=== PATIENT | male | born 1970 | race African-American/Black ===

== ENCOUNTER 2016-06-28 01:50 | Emergency (ER) | payer BC, OTHER ==
[2015-03-03 15:00] VITALS: BP 140/95
[~2016-06-28 01:50] MED LIST: ATOR10TA60 PO; Aspirin PO; FOLI1TAB16 PO; LIRA0.6P2 SQ; LISI10TA2 PO; METF10002 PO; OMEP40CA5 PO
== END 2016-06-28 02:20 | disposition left against medical advice (07) ==
LOC: ER 01:50
DX: R10.13 Epigastric pain (principal); Z53.21 Procedure and treatment not carried out due to patient leaving prior to being seen by health care provider

== ENCOUNTER 2016-08-12 19:33 | Inpatient (IN) | payer BC, OTHER ==
[~2016-08-12] VITALS: Ht 190.5 cm; Wt 158.0 kg
[2016-08-12 20:33] LABS: BASO % 1 % (0-3); EOS % 0 % (0-3); HEMATOCRIT 45.4 % (39.0-53.0); HEMOGLOBIN 14.7 g/dL (13.0-17.5); LYMPH % 23 % (24-48); MEAN CORPUSCULAR HEMOGLOBIN 27 pg (25-35); MEAN CORPUSCULAR HGB CONC 32 g/dL (31-37); MEAN CORPUSCULAR VOLUME 83 fL (79-100); MONO % 14 % (0-9); NEUT % 62 % (31-73); PLATELET COUNT 145 x10^3/uL (140-400); RED BLOOD COUNT 5.45 x10^6/uL (4.30-5.70); RED CELL DISTRIBUTION WIDTH 14.1 % (11.5-14.5); WHITE BLOOD COUNT 4.5 x10^3/uL (4.0-11.0)
[2016-08-12 20:44] LABS: CALCIUM 8.8 mg/dL (8.5-10.1); CREATININE 1.1 mg/dL (0.7-1.3); GFR 86.8; POTASSIUM 3.7 mmol/L (3.5-5.1)
[2016-08-12 20:49] LABS: ALBUMIN 3.5 g/dL (3.4-5.0); DIRECT BILIRUBIN 0.1 mg/dL (0.0-0.2); TOTAL BILIRUBIN 0.5 mg/dL (0.2-1.0); TOTAL PROTEIN 7.9 g/dL (6.4-8.2)
--- NOTE | 2016-08-12 21:26 | PHYS DOC ---
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 Patient has history of diabetes and hypertension. 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 He does state he has intermittent left upper quadrant pain but that his pain is more severe over the last day. Patient is febrile here at 102 Fahrenheit and complaining of some mild headache symptoms as well. He denies any cough. He denies any shortness of breath or chest pain. He denies any fever or chills. Review of Systems Review of Systems Constitutional: Has fever, has chills [] Eyes: Denies change in visual acuity, redness, or eye pain [] HENT: Denies nasal congestion or sore throat [] Respiratory: Denies cough or shortness of breath [] Cardiovascular: No additional information not addressed in HPI [] GI: Has abdominal pain, denies nausea, denies vomiting, bloody stools or diarrhea [] : Denies dysuria or hematuria [] Musculoskeletal: Denies back pain or joint pain [] Integument: Denies rash or skin lesions [] Neurologic: Denies headache, focal weakness or sensory changes [] Endocrine: Denies polyuria or polydipsia [] Current Medications Current Medications Current Medications Medications (Trade) Dose Ordered Sig/[facility] Start Time Stop Time Status Last Admin Dose Admin Acetaminophen (Tylenol) 650 mg 1X ONCE 08/12/16 22:30 08/12/16 22:31 DC 08/12/16 22:32 650 MG Enoxaparin Sodium (Lovenox 150mg Syringe) 150 mg 1X ONCE 08/12/16 23:00 08/12/16 23:01 DC 08/12/16 23:11 150 MG Hydralazine HCl (Apresoline) 10 mg 1X ONCE 08/12/16 22:00 08/12/16 22:01 DC 08/12/16 22:05 10 MG Info (Do NOT chart on this entry -- for MONITORING) 1 each PRN DAILY PRN 08/12/16 21:45 08/14/16 21:44 Iohexol (Omnipaque 300 Mg/ml) 75 ml 1X ONCE 08/12/16 21:45 08/12/16 21:46 DC 08/12/16 21:43 75 ML Ketorolac Tromethamine (Toradol) 30 mg 1X ONCE 08/12/16 21:30 08/12/16 21:31 DC 08/12/16 21:57 30 MG Ondansetron HCl (Zofran) 4 mg 1X ONCE 08/12/16 21:30 08/12/16 21:31 DC 08/12/16 21:56 4 MG Ondansetron HCl 4 mg 4 mg PRN Q8HRS PRN 08/12/16 22:45 08/13/16 22:44 Sodium Chloride (Iv Sodium Chloride 0.9% 1000ml Bag) 1,000 ml @ 125 mls/hr Q8H 08/12/16 22:45 08/13/16 22:44 08/12/16 23:23 125 MLS/HR Allergies Allergies Allergies Coded Allergies Type Severity Reaction Last Updated Verified No Known Drug Allergies 08/05/13 No Physical Exam Physical Exam Constitutional: Well developed, well nourished, no acute distress, non-toxic appearance. [] HENT: Normocephalic, atraumatic, bilateral external ears normal, oropharynx moist, no oral exudates, nose normal. [] Eyes: PERRLA, EOMI, conjunctiva normal, no discharge. [] Neck: Normal range of motion, no tenderness, supple, no stridor. [] Cardiovascular:Heart rate regular rhythm, no murmur [] Lungs & Thorax: Bilateral breath sounds clear to auscultation [] Abdomen: Bowel sounds normal, soft, LUQ tenderness, no masses, no pulsatile masses. [] Skin: Warm, dry, no erythema, no rash. [] Back: No tenderness, no CVA tenderness. [] Extremities: No tenderness, no cyanosis, no clubbing, ROM intact, no edema. [] Neurologic: Alert and oriented X 3, normal motor function, normal sensory function, no focal deficits noted. [] Psychologic: Affect normal, judgement normal, mood normal. [] Current Patient Data Vital Signs Vital Signs Date Time Temp Pulse Resp B/P Pulse Ox O2 Delivery O2 Flow Rate FiO2 08/12/16 22:05 88 160/96 08/12/16 19:48 102.4 20 96 Room Air 102.4 Lab Values Laboratory Tests Test 08/12/16 20:21 08/12/16 22:00 White Blood Count 4.5x10^3/uL (4.0-11.0) Red Blood Count 5.45x10^6/uL (4.30-5.70) Hemoglobin 14.7g/dL (13.0-17.5) Hematocrit 45.4% (39.0-53.0) Mean Corpuscular Volume 83fL (79-100) Mean Corpuscular Hemoglobin 27pg (25-35) Mean Corpuscular Hemoglobin Concent 32g/dL (31-37) Red Cell Distribution Width 14.1% (11.5-14.5) Platelet Count 145x10^3/uL (140-400) Neutrophils (%) (Auto) 62% (31-73) Lymphocytes (%) (Auto) 23% (24-48) L Monocytes (%) (Auto) 14% (0-9) H Eosinophils (%) (Auto) 0% (0-3) Basophils (%) (Auto) 1% (0-3) Neutrophils # (Auto) 2.8x10^3uL (1.8-7.7) Lymphocytes # (Auto) 1.0x10^3/uL (1.0-4.8) Monocytes # (Auto) 0.6x10^3/uL (0.0-1.1) Eosinophils # (Auto) 0.0x10^3/uL (0.0-0.7) Basophils # (Auto) 0.0x10^3/uL (0.0-0.2) Sodium Level 139mmol/L (136-145) Potassium Level 3.7mmol/L (3.5-5.1) Chloride Level 102mmol/L (98-107) Carbon Dioxide Level 26mmol/L (21-32) Anion Gap 11 (6-14) Blood Urea Nitrogen 10mg/dL (8-26) Creatinine 1.1mg/dL (0.7-1.3) Estimated GFR (Cockcroft-Gault) 86.8 Glucose Level 211mg/dL (70-99) H Calcium Level 8.8mg/dL (8.5-10.1) Total Bilirubin 0.5mg/dL (0.2-1.0) Direct Bilirubin 0.1mg/dL (0.0-0.2) Aspartate Amino Transferase (AST) 31U/L (15-37) Alanine Aminotransferase (ALT) 45U/L (16-63) Alkaline Phosphatase 66U/L (46-116) Total Protein 7.9g/dL (6.4-8.2) Albumin 3.5g/dL (3.4-5.0) Lipase 109U/L (73-393) Influenza Type A Antigen Negative (NEGATIVE) Influenza Type B Antigen Negative (NEGATIVE) Laboratory Tests 08/12/16 20:21 Laboratory Tests 08/12/16 20:21 EKG EKG [] Radiology/Procedures Radiology/Procedures FINDINGS Evaluation of enteric structures may be limited by lack of oral contrast. Fatty liver disease is seen. Spleen is mildly enlarged measuring 14.5 centimeters in axial dimension. Gallbladder is unremarkable as are the adrenal glands. Bilateral kidneys enhance symmetrically. No bowel obstruction or inflammation is seen. Appendix is without inflammation. Small fat containing umbilical hernia is present. Urinary bladder is unremarkable. Numerous varices and collateral veins are seen in the upper abdomen adjacent to the stomach and spleen. Some of the dilated veins extend to the inferior right abdomen. Exact cause is not identified, but the confluence of the splenic and mesenteric veins into the portal vein is indistinct. Consequently, there could be stenosis or occlusion in this location. The pancreas is grossly without evidence of inflammation or mass. Splenic vein is not well seen, and it is uncertain if it is stenotic or occluded. Degenerative changes are present in spine. IMPRESSION 1. Abnormal appearance to the portal venous and mesenteric venous system. Numerous varices and dilated collateral vessels are seen in the abdomen. Portal venous system is also indistinct. Consequently, there may be occlusion or stenosis, either from external or internal causes, at the expected location of the confluence of the splenic vein and mesenteric veins into the portal vein. Additionally, the splenic vein is not well seen, and it is uncertain if it is stenotic or occluded. This would be a chronic process, and it is uncertain if this is cause of patient's symptoms. 2. Splenomegaly. 3. Small fat containing umbilical hernia. Course & Med Decision Making Course & Med Decision Making Pertinent Labs and Imaging studies reviewed. (See chart for details) This 46-year-old male who is having left upper quadrant pain with fever as a CT of his abdomen and pelvis that does demonstrate some concerning findings and his portal one mesenteric circulation with a difficult to visualize splenic vein. I'm concerned that he may have another thrombus in the splenic vein that may be exacerbating his abdominal pain. I discussed these findings with the hospitalist, Dr. Grimes, who agreed to give the patient a Lovenox injection and to admit for further evaluation for his CT findings. His laboratory workup was unremarkable. Patient will likely receive MR imaging of his abdomen to further visualize the splenic vein and rule out any blood clot. Dragon Disclaimer Dragon Disclaimer This electronic medical record was generated, in whole or in part, using a voice recognition dictation system. Departure Departure Impression: Primary Impression: LUQ abdominal pain Additional Impression: Fever Disposition: 09 ADMITTED INPATIENT Admitting Physician: Shree Grimes Condition: STABLE Referrals: FABIO LOCKWOOD MD (PCP) Problem Qualifiers KARIME PONCE DO Aug 12, 2016 21:26
[2016-08-12] MEDS ORDERED: IV NORMAL SALINE 1000ML BAG 1,000 ML IV ONE (21:30)
[2016-08-12] MEDS ORDERED: ONDANSETRON PF 4 MG/2 ML VIAL. IV ONE (21:30)
[2016-08-12] MEDS ORDERED: KETOROLAC TROMETHAMINE 30 MG/ML INJ. IV ONE (21:30)
[2016-08-12] MEDS ORDERED: IOHEXOL 300 MG/ML 75 ML VIAL IV ONE (21:45)
[2016-08-12] MEDS ORDERED: CONTRAST GIVEN MC PRN (21:45)
[2016-08-12] MEDS ORDERED: hydrALAZINE 20 MG/ML VIAL. IVP ONE (22:00)
--- NOTE | 2016-08-12 22:17 | RAD ---
PROCEDURE CT abdomen pelvis with intravenous contrast. HISTORY Fever and left upper quadrant pain since previous day. TECHNIQUE After administration of intravenous contrast, 75 milliliters Omnipaque 300, CT of the abdomen and pelvis was performed. Exposure: One or more of the following individualized dose reduction techniques were utilized for this examination: 1. Automated exposure control. 2. Adjustment of the mA and/or kV according to patient size. 3. Use of iterative reconstruction technique. COMPARISON None. FINDINGS Evaluation of enteric structures may be limited by lack of oral contrast. Fatty liver disease is seen. Spleen is mildly enlarged measuring 14.5 centimeters in axial dimension. Gallbladder is unremarkable as are the adrenal glands. Bilateral kidneys enhance symmetrically. No bowel obstruction or inflammation is seen. Appendix is without inflammation. Small fat containing umbilical hernia is present. Urinary bladder is unremarkable. Numerous varices and collateral veins are seen in the upper abdomen adjacent to the stomach and spleen. Some of the dilated veins extend to the inferior right abdomen. Exact cause is not identified, but the confluence of the splenic and mesenteric veins into the portal vein is indistinct. Consequently, there could be stenosis or occlusion in this location. The pancreas is grossly without evidence of inflammation or mass. Splenic vein is not well seen, and it is uncertain if it is stenotic or occluded. Degenerative changes are present in spine. IMPRESSION 1. Abnormal appearance to the portal venous and mesenteric venous system. Numerous varices and dilated collateral vessels are seen in the abdomen. Portal venous system is also indistinct. Consequently, there may be occlusion or stenosis, either from external or internal causes, at the expected location of the confluence of the splenic vein and mesenteric veins into the portal vein. Additionally, the splenic vein is not well seen, and it is uncertain if it is stenotic or occluded. This would be a chronic process, and it is uncertain if this is cause of patient's symptoms. 2. Splenomegaly. 3. Small fat containing umbilical hernia. Electronically signed by: Matthew Gallo MD (Aug 12, 2016 22:15:37)
[2016-08-12] MEDS ORDERED: ACETAMINOPHEN 325 MG TABLET. PO ONE (22:30)
[2016-08-12 22:38] LABS: OBC FLU VALID
[2016-08-12] MEDS ORDERED: ONDANSETRON PF 4 MG/2 ML VIAL. IV PRN (22:45)
[2016-08-12] MEDS ORDERED: ENOXAPARIN ** NOTE DOSE ** SYRINGE SQ ONE (23:00)
[2016-08-12] MEDS: IV NORMAL SALINE 1000ML BAG 1,000 ML IV SCH (23:23)
--- NOTE | 2016-08-13 01:01 | ACF ---
Admission Forms Criteria ABDOMINAL PAIN Clinical Indications for Admission to Inpatient Care (Place 'X' for any and all applicable criteria): Admission is indicated for ANY ONE of the following(1)(2)(3)(4)(5): [X ]I. Inpatient admission required rather than observation care (Also use Abdominal Pain: Observation Care, as appropriate) because of ANY ONE of the following: [ ]a) Severe pain requiring acute inpatient management [X ]b) Identification of etiology/finding that requires inpatient care (eg, aortic dissection, free air) [ ]c) Absent bowel sounds with complete ileus(6) [ ]d) Suspected toxic megacolon [ ]e) Severe electrolyte abnormalities requiring inpatient care [ ]f) High fever or infection requiring inpatient admission as indicated by ANY ONE of following(7)(8): [ ] i) Appropriate outpatient or observational care antimicrobial treatment unavailable, not effective, or not feasible [ ] ii) Documented bacteremia [ ] iii) Temperature > 104.9 degrees F (oral) [ ] iv) T >103.1 F (oral) or < 96.8 F(rectal) that does not respond to all emergency treatment measures [ ]g) Signs of intestinal obstruction [B] [ ]h) Hemodynamic instability [ ]i) IV fluid to replace significant ongoing losses (greater than 3 L/m2 per day) (12)(13) [ ]j) Percutaneous or open drainage (eg, abscess, biliary tract ) procedures [ ]k) Parenteral nutrition regimen that must be implemented on inpatient basis [ ]l) Other condition,treatment or monitoring requiring inpatient admission. [ ]II. Peritoneal signs present [ ]III. Surgery needed that cannot be performed on an ambulatory basis. [ ]IV. Evaluation requires patient to not eat or drink for extended period ( eg, more than 24 hours). [ ]V. Contraindications and/or Inappropriate clinical situations for Observational Care in patients with abdominal pain, when ANY ONE of the following is required: [ ]a) Thorough evaluation is required to prevent catastrophic events due to delays in diagnosing (e.g.Mesenteric ischemia) 1,3 [ ]b) Patient with severe pathology or with chronic symptoms unlikely to improve in the ED stay (3) [ ]. General contraindications and/or Inappropriate clinical situations for Observational Care in patients with abdominal pain, when ANY ONE of the following is required: [ ]a) Prediction of prolongation of LOS based on ANY ONE of the following may be considered as a contraindication for observational care 2, 3, 4, 5, 6, 7, 8, 9, 10, 11 [ ]i) Age > 65 yrs. [ ]ii) Patient arriving by ambulance [ ]iii) Patient with high acuity [ ]iv) Patient requiring vital sign monitoring [ ]v) Patient on IV medication [ ]b) Systolic blood pressures 180mmHg 3,12 [ ]c) Patient with altered mental status including delirium and other alteration of consciousness, (3) [ ]d) Patient whose discharge disposition will be to a [facility] home or rehabilitation home should not be managed in Emergency Department Observation Unit. CMS rule requires 3 days hospital stay before such placement.3,13 [ ]e) Patient with failure to thrive due to broad array of etiologies 3,16,17 [ ]f) Inability to ambulate 3,14 Extended stay beyond goal length of stay may be needed for(2)(3): [ ]a) Persistent abdominal pain with suspected intra-abdominal process [ ]b) Diagnosed condition requiring continued stay (e.g., pancreatitis, complicated diverticulitis) [ ]c) Surgery (e.g., colectomy) The original [facility] content created by [employer] has been revised. The portions of the content which have been revised are identified through the use of italic text or in bold, and [facility] has neither reviewed nor approved the modified material.All other unmodified content is copyright [employer]. Please see references footnoted in the original [facility] edition 2016 Admission Criteria Met?: Yes DEVORAH ROBERTSON Aug 13, 2016 01:01
[2016-08-13 02:10] VITALS: BP 131/73
[2016-08-13] MEDS: FENTANYL PF 100 MCG/2 ML VIAL. IV PRN ×2 (02:12→05:24)
[2016-08-13 07:00] VITALS: BP_SYST 162; BP_DIAS 102; BP_DIAS 97
[2016-08-13 07:03] LABS: BASO % 1 % (0-3); EOS % 0 % (0-3); HEMATOCRIT 45.9 % (39.0-53.0); HEMOGLOBIN 14.4 g/dL (13.0-17.5); LYMPH # 1.2 x10^3/uL (1.0-4.8); LYMPH % 31 % (24-48); MEAN CORPUSCULAR HEMOGLOBIN 27 pg (25-35); MEAN CORPUSCULAR HGB CONC 31 g/dL (31-37); MEAN CORPUSCULAR VOLUME 86 fL (79-100); MONO % 14 % (0-9); NEUT % 55 % (31-73); PLATELET COUNT 136 x10^3/uL (140-400); RED BLOOD COUNT 5.35 x10^6/uL (4.30-5.70); RED CELL DISTRIBUTION WIDTH 14.6 % (11.5-14.5); WHITE BLOOD COUNT 3.8 x10^3/uL (4.0-11.0)
[2016-08-13 07:12] LABS: CALCIUM 8.7 mg/dL (8.5-10.1); CREATININE 1.1 mg/dL (0.7-1.3); GFR 86.8
[2016-08-13] MEDS: IV NORMAL SALINE 1000ML BAG 1,000 ML IV SCH ×2 (08:20→16:10)
--- NOTE | 2016-08-13 08:24 | PDOC ---
Provider Note Provider Note [id number] CRISTOBAL MONZON MD Aug 13, 2016 08:23
[2016-08-13] MEDS ORDERED: ACETAMINOPHEN 325 MG TABLET. PO PRN ×2 (08:30→17:15)
[2016-08-13] MEDS: ASA/APAP/CAFFEINE 250/250/65MG TABLET. PO PRN (08:34)
[2016-08-13] MEDS: LISINOPRIL 10 MG TABLET PO SCH (08:35)
[2016-08-13] MEDS: PANTOPRAZOLE 40 MG TABLET. PO SCH (08:35)
--- NOTE | 2016-08-13 09:21 | RAD ---
Indication fever and left-sided chest pain. PA and lateral views of the chest were obtained. Comparison is made to an examination 11/19/2011. Inspiratory effort is suboptimal. Heart size is unchanged relative to the previous exam. Gross congestive heart failure is not seen. A focal infiltrate in either lung is not seen. Significant pleural fluid is not apparent. There is no pneumothorax. IMPRESSION: No acute finding apparent in the chest.
[2016-08-13 11:00] VITALS: BP 152/96
[2016-08-13 15:00] VITALS: BP 161/99
[2016-08-13 16:18] LABS: HEP A IGM ABDY Negative (Negative)
[2016-08-13] MEDS: ACETAMINOPHEN 325 MG TABLET. PO PRN ×2 (17:20→21:01)
[2016-08-13 17:44] LABS: BILIRUBIN,URINE NEGATIVE (NEG); GLUCOSE,URINE 100 mg/dL (NEG); NITRITE,URINE NEGATIVE (NEG); PH,URINE 6.5; PROTEIN,URINE NEGATIVE (NEG-TRACE)
[2016-08-13 18:19] LABS: BACTERIA,URINE 0 /HPF (0-FEW); RBC,URINE 0 /HPF (0-2); SQUAMOUS EPITHELIAL CELL,UR FEW /LPF; WBC,URINE 0 /HPF (0-4)
--- NOTE | 2016-08-13 18:42 | PDOC2 ---
NEUROLOGY CONSULT Date of Admission Date of Admission DATE: 08/13/16 TIME: 18:29 Reason for Consult Reason for Consult: IMPRESSION: Abdominal pain. Headache. fever. Nausea Vomiting. Portal vein system abnormality on ab CT. Hx of spleen thrombosis. DM HTN Obesity HCV infection? RECOMMENDATIONS/PLAN: Brain MRI/MRA/MRV w/wo contrast. Lab: see orders. Keep good hydration. Please consult ID. Please consult GI. Treat medical diseases. HISTORY OF THE PRESENT ILLNESS: 46-y-old AA male patient with above medical disease had Hx of spleen thrombosis about 2 years ago. He developed symptoms of nausea, vomiting, abdominal pain, headaches, and fever as high as 103 per his for about 2 days before coming to the ER of [facility]. No mental status changes. No focalized motor or sensory deficits. PAST MEDICAL HISTORY: Please see above. PAST SURGERY HISTORY: Right rotate cuff surgery. Right knee surgery ALLERGY: Reviewed. MEDICATIONS: Refer to [facility] FAMILY HISTORY: Non contributory. SOCIAL HISTORY: Lives at home aith his . Denies smoking and illicit drug use. He drinks alcohol occasionally. REVIEW OF SYSTEMS: Constitutional: No malnutrition, weight loss, cachexia. Head: No traumatic brain or head injury. Skin: No edema, or rash. Ear: No infection. Eyes: No vision loss or color blindness. Nose: No bleeding or purulent discharges. Hearing: No hearing decrease. Neck: No injury. Cardiac: HTN. Pulmonary: No COPD. GI: Spleen thrombosis. Urinary/genital: No dysuria, hematuria, incontinence, urinary retention. Endocrinologic: Diabetes Mellitus, obesity. Skeletomuscular: No muscular atrophy, deformity. Neurological: see HP. Psychiatric: Denies drug use/abuse. Otherwise, not [id number] review of systems. PHYSICAL EXAMINATION: General appearance is in subacute distress. HEENT: Normocephalic and nontraumatic. Eyes, nose, ears, and throat are unremarkable. Neck is supple. No lymphadenopathy. No bruits are heard over the carotid artery. No crepitus. Cardiovascular: S1, S2, regular rate and rhythm. Pulmonary: Clear to auscultation bilaterally. Abdomen: Bowel sounds are positive. Extremities: No rash, lesions, or edema. No restriction of range of motion NEUROLOGICAL EXAMINATION: Alert Oriented to time, place and person. PERRL. EOMI. CN: no focal findings. Muscle tone: within normal. Muscle strength: 5 DTR: 1+ due to obesity. Plantar reflex: Flexor response bilaterally Gait: At baseline normal. Sensory exam: no abnormal findings. No acute cerebellar signs elicited. F-T-N test fine. Current Medications Current Medications Current Medications Ketorolac Tromethamine 30 mg 30 mg 1X ONCE IV Last administered on 08/12/16 21:57; Start 08/12/16 at 21:30; Stop 08/12/16 at 21:31; Status DC Sodium Chloride (Iv Sodium Chloride 0.9% 1000ml Bag) 1,000 ml @ 1,000 mls/hr 1X ONCE IV Last administered on 08/12/16 21:58; Start 08/12/16 at 21:30; Stop 08/12/16 at 22:29; Status DC Ondansetron HCl (Zofran) 4 mg 1X ONCE IV Last administered on 08/12/16 21:56 ; Start 08/12/16 at 21:30; Stop 08/12/16 at 21:31; Status DC Iohexol (Omnipaque 300 Mg/ml) 75 ml 1X ONCE IV Last administered on 08/12/16 21:43; Start 08/12/16 at 21:45; Stop 08/12/16 at 21:46; Status DC Info (Do NOT chart on this entry -- for MONITORING) 1 each PRN DAILY PRN MC SEE COMMENTS; Start 08/12/16 at 21:45; Stop 08/14/16 at 21:44 Hydralazine HCl (Apresoline) 10 mg 1X ONCE IVP Last administered on 08/12/16 22:05; Start 08/12/16 at 22:00; Stop 08/12/16 at 22:01; Status DC Acetaminophen (Tylenol) 650 mg 1X ONCE PO Last administered on 08/12/16 22:32 ; Start 08/12/16 at 22:30; Stop 08/12/16 at 22:31; Status DC Enoxaparin Sodium (Lovenox 150mg Syringe) 150 mg 1X ONCE SQ Last administered on 08/12/16 23:11; Start 08/12/16 at 23:00; Stop 08/12/16 at 23:01; Status DC Ondansetron HCl 4 mg 4 mg PRN Q8HRS PRN IV NAUSEA/VOMITING; Start 08/12/16 at 22:45; Stop 08/13/16 at 22:44 Sodium Chloride (Iv Sodium Chloride 0.9% 1000ml Bag) 1,000 ml @ 125 mls/hr Q8H IV Last administered on 08/13/16 08:20; Start 08/12/16 at 22:45; Stop at 22:44 Fentanyl Citrate (Fentanyl 2ml Vial) 50 mcg PRN Q2HR PRN IV PAIN Last administered on 08/13/16 05:24; Start 08/13/16 at 01:30; Stop 08/13/16 at 08:20 ; Status DC Lisinopril (Prinivil) 10 mg DAILY PO Last administered on 08/13/16 08:35; Start 08/13/16 at 09:00 Pantoprazole Sodium (Protonix) 40 mg DAILYAC PO Last administered on 08/13/16 08:35; Start 08/13/16 at 08:30 Acetaminophen (Tylenol) 650 mg PRN Q6HRS PRN PO PAIN; Start 08/13/16 at 08:30; Stop 08/13/16 at 17:10; Status DC Acetaminophen/ Aspirin/Caffeine (Excedrin Migraine) 2 tab PRN Q6HRS PRN PO MIGRAINE HEADACHE Last administered on 08/13/16 08:34; Start 08/13/16 at 08:30 Acetaminophen (Tylenol) 650 mg PRN Q6HRS PRN PO PAIN; Start 08/13/16 at 17:15; Stop 08/13/16 at 17:15; Status DC Acetaminophen (Tylenol) 650 mg PRN Q6HRS PRN PO PAIN Last administered on 17:20; Start 08/13/16 at 17:30 Ibuprofen (Motrin) 400 mg PRN Q4HRS PRN PO HEADACHE; Start 08/13/16 at 17:45 Active Scripts Active Atorvastatin Calcium 10 Mg Tablet 1 Tab PO DAILY [Aspirin] 325 MG Tablet 325 Mg PO DAILYWBKFT Reported Folic Acid 1 Mg Tablet 1 Tab PO DAILY Victoza 3-Pako (Liraglutide) 0.6 Mg/0.1 Ml Pen.injctr 1.8 Mg SQ DAILY Omeprazole 40 Mg Capsule.dr 40 Mg PO DAILY Lisinopril 10 Mg Tablet 10 Mg PO DAILY Metformin Hcl 1,000 Mg Tablet 1,000 Mg PO BID Allergies Allergies: Coded Allergies: No Known Drug Allergies (Unverified , 08/05/13) Vitals VITALS Vital Signs Date Time Temp Pulse Resp B/P Pulse Ox O2 Delivery O2 Flow Rate FiO2 08/13/16 15:00 98.0 75 20 161/99 95 Room Air 98.0 Labs Labs Laboratory Tests Test 08/12/16 20:21 08/12/16 22:00 08/13/16 06:15 08/13/16 08:24 White Blood Count 4.5x10^3/uL (4.0-11.0) 3.8x10^3/uL (4.0-11.0) Red Blood Count 5.45x10^6/uL (4.30-5.70) 5.35x10^6/uL (4.30-5.70) Hemoglobin 14.7g/dL (13.0-17.5) 14.4g/dL (13.0-17.5) Hematocrit 45.4% (39.0-53.0) 45.9% (39.0-53.0) Mean Corpuscular Volume 83fL (79-100) 86fL (79-100) Mean Corpuscular Hemoglobin 27pg (25-35) 27pg (25-35) Mean Corpuscular Hemoglobin Concent 32g/dL (31-37) 31g/dL (31-37) Red Cell Distribution Width 14.1% (11.5-14.5) 14.6% (11.5-14.5) Platelet Count 145x10^3/uL (140-400) 136x10^3/uL (140-400) Neutrophils (%) (Auto) 62% (31-73) 55% (31-73) Lymphocytes (%) (Auto) 23% (24-48) 31% (24-48) Monocytes (%) (Auto) 14% (0-9) 14% (0-9) Eosinophils (%) (Auto) 0% (0-3) 0% (0-3) Basophils (%) (Auto) 1% (0-3) 1% (0-3) Neutrophils # (Auto) 2.8x10^3uL (1.8-7.7) 2.1x10^3uL (1.8-7.7) Lymphocytes # (Auto) 1.0x10^3/uL (1.0-4.8) 1.2x10^3/uL (1.0-4.8) Monocytes # (Auto) 0.6x10^3/uL (0.0-1.1) 0.5x10^3/uL (0.0-1.1) Eosinophils # (Auto) 0.0x10^3/uL (0.0-0.7) 0.0x10^3/uL (0.0-0.7) Basophils # (Auto) 0.0x10^3/uL (0.0-0.2) 0.0x10^3/uL (0.0-0.2) Sodium Level 139mmol/L (136-145) 139mmol/L (136-145) Potassium Level 3.7mmol/L (3.5-5.1) 4.0mmol/L (3.5-5.1) Chloride Level 102mmol/L (98-107) 102mmol/L (98-107) Carbon Dioxide Level 26mmol/L (21-32) 27mmol/L (21-32) Anion Gap 11 (6-14) 10 (6-14) Blood Urea Nitrogen 10mg/dL (8-26) 10mg/dL (8-26) Creatinine 1.1mg/dL (0.7-1.3) 1.1mg/dL (0.7-1.3) Estimated GFR (Cockcroft-Gault) 86.8 86.8 Glucose Level 211mg/dL (70-99) 242mg/dL (70-99) Calcium Level 8.8mg/dL (8.5-10.1) 8.7mg/dL (8.5-10.1) Total Bilirubin 0.5mg/dL (0.2-1.0) Direct Bilirubin 0.1mg/dL (0.0-0.2) Aspartate Amino Transf (AST/SGOT) 31U/L (15-37) Alanine Aminotransferase (ALT/SGPT) 45U/L (16-63) Alkaline Phosphatase 66U/L (46-116) Total Protein 7.9g/dL (6.4-8.2) Albumin 3.5g/dL (3.4-5.0) Lipase 109U/L (73-393) Influenza Type A Antigen Negative (NEGATIVE) Influenza Type B Antigen Negative (NEGATIVE) Hepatitis A IgM Antibody Negative (Negative) Hepatitis B Surface Antigen Negative (Negative) Hepatitis B Core IgM Antibody Negative (Negative) Hepatitis C Antibody 1.5s/co ratio (0.0-0.9) Glucose (Fingerstick) 221mg/dL (70-99) Test 08/13/16 09:30 08/13/16 10:52 08/13/16 11:01 08/13/16 16:25 Erythrocyte Sedimentation Rate 14 (0-15) Urine Collection Type Unknown Urine Color Yellow Urine Clarity Clear Urine pH 6.5 Urine Specific [place] 1.025 Urine Protein Negativemg/dL (NEG-TRACE) Urine Glucose (UA) 100mg/dL (NEG) Urine Ketones (Stick) Negativemg/dL (NEG) Urine Blood Negative (NEG) Urine Nitrite Negative (NEG) Urine Bilirubin Negative (NEG) Urine Urobilinogen Dipstick 1.0mg/dL (0.2 mg/dL) Urine Leukocyte Esterase Negative (NEG) Urine RBC 0/HPF (0-2) Urine WBC 0/HPF (0-4) Urine Squamous Epithelial Cells Few/LPF Urine Bacteria 0/HPF (0-FEW) Urine Mucus Mod/LPF Glucose (Fingerstick) 280mg/dL (70-99) 173mg/dL (70-99) Laboratory Tests Test 08/12/16 20:21 08/12/16 22:00 08/13/16 06:15 08/13/16 08:24 White Blood Count 4.5x10^3/uL (4.0-11.0) 3.8x10^3/uL (4.0-11.0) Red Blood Count 5.45x10^6/uL (4.30-5.70) 5.35x10^6/uL (4.30-5.70) Hemoglobin 14.7g/dL (13.0-17.5) 14.4g/dL (13.0-17.5) Hematocrit 45.4% (39.0-53.0) 45.9% (39.0-53.0) Mean Corpuscular Volume 83fL (79-100) 86fL (79-100) Mean Corpuscular Hemoglobin 27pg (25-35) 27pg (25-35) Mean Corpuscular Hemoglobin Concent 32g/dL (31-37) 31g/dL (31-37) Red Cell Distribution Width 14.1% (11.5-14.5) 14.6% (11.5-14.5) Platelet Count 145x10^3/uL (140-400) 136x10^3/uL (140-400) Neutrophils (%) (Auto) 62% (31-73) 55% (31-73) Lymphocytes (%) (Auto) 23% (24-48) 31% (24-48) Monocytes (%) (Auto) 14% (0-9) 14% (0-9) Eosinophils (%) (Auto) 0% (0-3) 0% (0-3) Basophils (%) (Auto) 1% (0-3) 1% (0-3) Neutrophils # (Auto) 2.8x10^3uL (1.8-7.7) 2.1x10^3uL (1.8-7.7) Lymphocytes # (Auto) 1.0x10^3/uL (1.0-4.8) 1.2x10^3/uL (1.0-4.8) Monocytes # (Auto) 0.6x10^3/uL (0.0-1.1) 0.5x10^3/uL (0.0-1.1) Eosinophils # (Auto) 0.0x10^3/uL (0.0-0.7) 0.0x10^3/uL (0.0-0.7) Basophils # (Auto) 0.0x10^3/uL (0.0-0.2) 0.0x10^3/uL (0.0-0.2) Sodium Level 139mmol/L (136-145) 139mmol/L (136-145) Potassium Level 3.7mmol/L (3.5-5.1) 4.0mmol/L (3.5-5.1) Chloride Level 102mmol/L (98-107) 102mmol/L (98-107) Carbon Dioxide Level 26mmol/L (21-32) 27mmol/L (21-32) Anion Gap 11 (6-14) 10 (6-14) Blood Urea Nitrogen 10mg/dL (8-26) 10mg/dL (8-26) Creatinine 1.1mg/dL (0.7-1.3) 1.1mg/dL (0.7-1.3) Estimated GFR (Cockcroft-Gault) 86.8 86.8 Glucose Level 211mg/dL (70-99) 242mg/dL (70-99) Calcium Level 8.8mg/dL (8.5-10.1) 8.7mg/dL (8.5-10.1) Total Bilirubin 0.5mg/dL (0.2-1.0) Direct Bilirubin 0.1mg/dL (0.0-0.2) Aspartate Amino Transf (AST/SGOT) 31U/L (15-37) Alanine Aminotransferase (ALT/SGPT) 45U/L (16-63) Alkaline Phosphatase 66U/L (46-116) Total Protein 7.9g/dL (6.4-8.2) Albumin 3.5g/dL (3.4-5.0) Lipase 109U/L (73-393) Influenza Type A Antigen Negative (NEGATIVE) Influenza Type B Antigen Negative (NEGATIVE) Hepatitis A IgM Antibody Negative (Negative) Hepatitis B Surface Antigen Negative (Negative) Hepatitis B Core IgM Antibody Negative (Negative) Hepatitis C Antibody 1.5s/co ratio (0.0-0.9) Glucose (Fingerstick) 221mg/dL (70-99) Test 08/13/16 09:30 08/13/16 10:52 08/13/16 11:01 08/13/16 16:25 Erythrocyte Sedimentation Rate 14 (0-15) Urine Collection Type Unknown Urine Color Yellow Urine Clarity Clear Urine pH 6.5 Urine Specific [place] 1.025 Urine Protein Negativemg/dL (NEG-TRACE) Urine Glucose (UA) 100mg/dL (NEG) Urine Ketones (Stick) Negativemg/dL (NEG) Urine Blood Negative (NEG) Urine Nitrite Negative (NEG) Urine Bilirubin Negative (NEG) Urine Urobilinogen Dipstick 1.0mg/dL (0.2 mg/dL) Urine Leukocyte Esterase Negative (NEG) Urine RBC 0/HPF (0-2) Urine WBC 0/HPF (0-4) Urine Squamous Epithelial Cells Few/LPF Urine Bacteria 0/HPF (0-FEW) Urine Mucus Mod/LPF Glucose (Fingerstick) 280mg/dL (70-99) 173mg/dL (70-99) DESEAN HANCOCK MD Aug 13, 2016 18:42
[2016-08-13] MEDS: IBUPROFEN 400 MG TABLET. PO PRN (18:51)
[2016-08-13 19:00] VITALS: BP 162/102
[2016-08-13] MEDS: PIPERACILLIN/TAZOBACTAM 3.375 GM in IV NORMAL SALINE 50ML 50 ML IV SCH (20:21)
--- NOTE | 2016-08-13 22:05 | HP ---
ADMIT DATE: 08/13/2016 CHIEF COMPLAINT: Fevers and headache. HISTORY OF PRESENT ILLNESS: A 46-year-old black male patient of Dr. Son who has a history of diabetes and apparently is relatively stable. He came in with 2 days of fever, headache, body aches, malaise, and then some left upper quadrant pain, which has since gone away. He had no other specific complaints of cough, fever, urinary tract symptoms, vomiting, diarrhea, rash, or other symptoms. CT scan showed multiple varicosities in the upper abdomen and some mild splenic enlargement, and he does give a history of some spleen problems 2 to 3 years ago at . He apparently had a liver biopsy and was told "everything is fine" with no definite diagnosis given. He has had a colonoscopy in the past with polyp removal, but nothing recently. PAST HISTORY: MEDICATIONS: He takes Victoza, metformin, and Prinivil. ALLERGIES: He has no known drug allergies. SOCIAL HISTORY: Nonsmoker, nondrinker, . He is employed. FAMILY HISTORY: Unremarkable. REVIEW OF SYSTEMS: No other complaints. OBJECTIVE: ENT: All within normal limits. Pharynx is clear. NECK: Revealed no carotid bruits, nodes, thyroid enlargement, or masses. LUNGS: Clear without tachypnea. CARDIOVASCULAR: Regular rate. No tachycardia, murmur, or rub. ABDOMEN: Soft, benign, nontender particularly in the left upper quadrant. No masses, guarding, or skin rash. EXTREMITIES: Good pedal and radial pulses. No joint or skin lesions or nail bed findings. NEUROLOGIC: Physiologic and nonfocal. No meningeal signs. Alert and oriented. ASSESSMENT: Fever, body aches, myalgias, and transient left upper quadrant pain. The varicosities seen on CT scan are nonspecific raising the question of some sort of ongoing liver disease or portal hypertension, but ____ etiology is not clear. PLAN: Blood cultures, urinalysis, chest x-ray and observation. We will get old records from Dr. Son as well. CRISTOBAL MONZON MD DR: RICH/angelia JOB#: [id number] / [id number]
[2016-08-13 23:00] VITALS: BP 136/92
[2016-08-14] MEDS: IBUPROFEN 400 MG TABLET. PO PRN (01:12)
[2016-08-14 03:20] VITALS: BP 136/76
[2016-08-14] MEDS ORDERED: ACETAMINOPHEN 325 MG TABLET. PO ONE (04:27)
[2016-08-14] MEDS: PIPERACILLIN/TAZOBACTAM 3.375 GM in IV NORMAL SALINE 50ML 50 ML IV SCH ×6 (05:41→22:18)
[2016-08-14 05:48] LABS: CHOLESTEROL/HDL RATIO 5.7
[2016-08-14] MEDS: PANTOPRAZOLE 40 MG TABLET. PO SCH (06:24)
[2016-08-14] MEDS: ACETAMINOPHEN 325 MG TABLET. PO PRN ×3 (06:24→17:23)
[2016-08-14 07:00] VITALS: BP 138/92
--- NOTE | 2016-08-14 08:19 | PDOC ---
Provider Note Provider Note feels better, less ISABEL , no new sxs- discussed + hep c test , which he says was not found before- temp down, no meningeal signs now , no new signs- discussed high a1c and likely need for insulin, he declines at present and was present for discussion- bc neg as is esr- mri etc pending per dr hanna but i feel no need for LP at present CRISTOBAL MONZON MD Aug 14, 2016 08:19
--- NOTE | 2016-08-14 08:34 | PDOC ---
Infectious Disease Note Vital Sign Vital Signs Vital Signs Date Time Temp Pulse Resp B/P Pulse Ox O2 Delivery O2 Flow Rate FiO2 08/14/16 03:20 98.0 64 20 136/76 94 Room Air 98.0 Labs Lab Laboratory Tests Test 08/13/16 09:30 08/13/16 10:52 08/13/16 11:01 08/13/16 16:25 Erythrocyte Sedimentation Rate 14 (0-15) Urine Collection Type Unknown Urine Color Yellow Urine Clarity Clear Urine pH 6.5 Urine Specific [place] 1.025 Urine Protein Negativemg/dL (NEG-TRACE) Urine Glucose (UA) 100mg/dL (NEG) Urine Ketones (Stick) Negativemg/dL (NEG) Urine Blood Negative (NEG) Urine Nitrite Negative (NEG) Urine Bilirubin Negative (NEG) Urine Urobilinogen Dipstick 1.0mg/dL (0.2 mg/dL) Urine Leukocyte Esterase Negative (NEG) Urine RBC 0/HPF (0-2) Urine WBC 0/HPF (0-4) Urine Squamous Epithelial Cells Few/LPF Urine Bacteria 0/HPF (0-FEW) Urine Mucus Mod/LPF Glucose (Fingerstick) 280mg/dL (70-99) 173mg/dL (70-99) Test 08/14/16 04:20 08/14/16 07:44 Triglycerides Level 136mg/dL (0-150) Cholesterol Level 147mg/dL (0-200) LDL Cholesterol, Calculated 94mg/dL (0-100) VLDL Cholesterol, Calculated 27mg/dL (0-40) HDL Cholesterol 26mg/dL (40-60) Cholesterol/HDL Ratio 5.7 Glucose (Fingerstick) 167mg/dL (70-99) Objective Assessment Fever and chills Adbominal pain N/V Headache Cirrhosis of liver Hep c Plan Plan of Care zosyn empiric check cultures supportive care hep c workup out pt PETRONA RIVERA MD Aug 14, 2016 08:34
[2016-08-14] MEDS ORDERED: GADOBUTROL 10 MMOL/10 ML VIAL IV ONE (09:45)
--- NOTE | 2016-08-14 10:16 | RAD ---
PROCEDURE MRI brain with and without contrast. HISTORY Increasing headaches. Hepatitis C. Thrombus in GI system. TECHNIQUE Sagittal T1, axial T1, axial T2, axial FLAIR, axial T2 gradient, diffusion imaging with ADC map, post-contrast axial, and post-contrast coronal sequences are provided. The patient received 10 milliliters of intravenous Gadavist without complication. COMPARISON March 03, 2015. FINDINGS The ventricles and sulci are within normal limits for age. There is no acute intracranial hemorrhage or extra-axial fluid collection. There is no mass effect or midline shift. There is no restricted diffusion to suggest an acute infarct. Cervicomedullary junction is unremarkable. Pituitary and suprasellar region are unremarkable. Intracranial flow voids are preserved. There is no pathologic enhancement. There are retention cysts in the nasopharynx. There is minimal pansinus mucosal thickening with relative sparing of the sphenoid sinuses. Mastoid air cells are clear. IMPRESSION No acute intracranial findings. Electronically signed by: Raymundo Geiger MD (Aug 14, 2016 10:15:10)
--- NOTE | 2016-08-14 10:18 | RAD ---
PROCEDURE MRA head without contrast. HISTORY Increasing headaches. Hypertension. TECHNIQUE 3D [id number] source images and 3D maximum intensity projection re-formatted images are provided. COMPARISON None. FINDINGS Cavernous carotids are without stenosis or aneurysm. Anterior and middle cerebral arteries are without stenosis or aneurysm. Both vertebral arteries are within normal limits and cosupply the basilar artery. Basilar artery is normal in appearance. No posterior cerebral artery stenosis is identified. No posterior circulation aneurysm is apparent. IMPRESSION Normal intracranial MRA. Electronically signed by: Raymundo Geiger MD (Aug 14, 2016 10:16:54)
--- NOTE | 2016-08-14 10:20 | RAD ---
PROCEDURE MR venogram head without contrast. HISTORY Headaches. TECHNIQUE 2D [id number] source images and 3D maximum intensity projection re-formatted images are provided. COMPARISON None. FINDINGS Superior sagittal sinus is without thrombus. It preferentially drains to the left transverse sinus. Deep cerebral veins appear patent. IMPRESSION Normal noncontrast MRV head. Electronically signed by: Raymundo Geiger MD (Aug 14, 2016 10:18:33)
--- NOTE | 2016-08-14 10:29 | PDOC2 ---
GI CONSULT Reason For Consult: Nausea, fever HPI: HPI: 46 y/o male admitted w/ ISABEL, fever, LUQ pain. Symptoms began Thursday or Thursday w/ o precipitating events. Vomited once yesterday. Neuro and ID following. Previously has seen Dr. Brody Day. GI workup in 2014: CT A/P: fatty liver, abdominal varices. GET: abnormal T1/2 time of 202 min c/w gastroparesis. EGD: H. pylori neg gastritis, non-bleeding isolated gastric varices, normal esophagus and duodenum. Colonoscopy: 15mm adenomatous polyp in the distal transverse colon, normal random colon biopsies. Hep A Ab IgM positive, elevated Hep C Ab, neg Hep C PCR, neg total anti-HAV. Last office visit (2013) was improved on metoclopramide 10mg TID and omeprazole 40mg QD (h/o heartburn) - no longer taking either of these. Saw Dr. Mitchell (hepatology) at [facility] re: varics, chronic SMV occlusion , and elevated homocysteine level. Recommended folic acid, CBC and CMP monitoring, and interval abd imaging. After that, saw Dr. Smith and a paving foreman at . Was treated w/ Pradaxa x ~6 months about 1.5 years ago. Also had liver biopsy which he says was normal. Currently w/o GI complaints. No pain, tolerating diet w/o vomiting. Does still have headache and neck pain. Denies heartburn/reflux, early satiety, diarrhea, hematochezia, melena. Take stool softener for constipation PRN. PMH: PMH: gastroparesis, heartburn, splenic vein thrombosis, fatty liver, abd varices, knee surgery FH: Family History: Cancer, CVA, DM, Hypertension Social History: Smoke: No ALCOHOL: rare Drugs: None ROS: GEN: +fevers HEENT: +head and neck pain CV: Denies chest pain RESP: Denies shortness of air, cough GI: Per HPI : Denies hematuria, dysuria ENDO: Denies weight changes NEURO: Denies confusion, dizziness MSK: Denies weakness, joint pain/swelling SKIN: Denies jaundice, pruritus VItals: Vitals: Vital Signs Date Time Temp Pulse Resp B/P Pulse Ox O2 Delivery O2 Flow Rate FiO2 08/14/16 07:00 97.8 69 20 138/92 94 Room Air 97.8 Labs: Labs: Laboratory Tests Test 08/13/16 10:52 08/13/16 11:01 08/13/16 16:25 08/14/16 04:20 Urine Collection Type Unknown Urine Color Yellow Urine Clarity Clear Urine pH 6.5 Urine Specific [place] 1.025 Urine Protein Negativemg/dL (NEG-TRACE) Urine Glucose (UA) 100mg/dL (NEG) Urine Ketones (Stick) Negativemg/dL (NEG) Urine Blood Negative (NEG) Urine Nitrite Negative (NEG) Urine Bilirubin Negative (NEG) Urine Urobilinogen Dipstick 1.0mg/dL (0.2 mg/dL) Urine Leukocyte Esterase Negative (NEG) Urine RBC 0/HPF (0-2) Urine WBC 0/HPF (0-4) Urine Squamous Epithelial Cells Few/LPF Urine Bacteria 0/HPF (0-FEW) Urine Mucus Mod/LPF Glucose (Fingerstick) 280mg/dL (70-99) 173mg/dL (70-99) Triglycerides Level 136mg/dL (0-150) Cholesterol Level 147mg/dL (0-200) LDL Cholesterol, Calculated 94mg/dL (0-100) VLDL Cholesterol, Calculated 27mg/dL (0-40) HDL Cholesterol 26mg/dL (40-60) Cholesterol/HDL Ratio 5.7 Test 08/14/16 07:44 Glucose (Fingerstick) 167mg/dL (70-99) Allergies: Coded Allergies: No Known Drug Allergies (Unverified , 08/05/13) Medications: Current Medications Medications (Trade) Dose Ordered Sig/Sergio Route PRN Reason Start Time Stop Time Status Last Admin Dose Admin Acetaminophen (Tylenol) 650 mg PRN Q6HRS PRN PO PAIN 08/13/16 17:30 08/14/16 05:37 DC 08/13/16 21:01 Ibuprofen 400 mg 400 mg PRN Q4HRS PRN PO HEADACHE 08/13/16 17:45 08/14/16 01:12 Piperacillin Sod/ Tazobactam Sod/ Sodium Chloride (Zosyn/Iv Sodium Chloride 0.9% 50ml) 50 ml @ 100 mls/hr Q6HRS IV 08/13/16 19:15 08/14/16 05:41 Acetaminophen (Tylenol) 650 mg PRN Q6HRS PRN PO MILD PAIN 08/14/16 05:37 08/14/16 06:24 Gadobutrol (Gadavist) 10 mmol 1X ONCE IV 08/14/16 09:45 08/14/16 09:48 DC 08/14/16 09:54 Imaging: Imaging: CT A/P IMPRESSION 1. Abnormal appearance to the portal venous and mesenteric venous system. Numerous varices and dilated collateral vessels are seen in the abdomen. Portal venous system is also indistinct. Consequently, there may be occlusion or stenosis, either from external or internal causes, at the expected location of the confluence of the splenic vein and mesenteric veins into the portal vein. Additionally, the splenic vein is not well seen, and it is uncertain if it is stenotic or occluded. This would be a chronic process, and it is uncertain if this is cause of patient's symptoms. 2. Splenomegaly. 3. Small fat containing umbilical hernia. CXR IMPRESSION: No acute finding apparent in the chest. Brain MRIs PENDING PE: GEN: NAD, up to chair HEENT: Atraumatic, PERRL LUNGS: CTAB HEART: RRR ABD: NABS, S/ND/NT EXTREMITY: No edema SKIN: No rashes, no jaundice NEURO/PSYCH: A & O 3 MSK: left rib tenderness A/P: A/P: Fever, ISABEL LUQ pain, vomiting - resolved Abdominal/gastric varices, SMV occlusion -previously on Pradaxa H/o abnormal hepatitis serologies -previously cleared by hepatology -reports normal liver biopsy at [facility] H/o heartburn, h/o gastroparesis -previously took PPI and metoclopramide - asymptomatic off both CRC screen, h/o large adenomatous polyp -due for screening colonoscopy this year -- GI symptoms resolved. Will review chronic issues w/ Dr. Gomez. SALOME REESE Aug 14, 2016 10:29
[2016-08-14 11:00] VITALS: BP 173/105
[2016-08-14] MEDS: LISINOPRIL 10 MG TABLET PO SCH (11:56)
--- NOTE | 2016-08-14 13:58 | PDOC ---
PROGRESS NOTES Assessment Assessment Abdominal pain. Headache. fever. Portal vein system abnormality on ab CT. Hx of spleen thrombosis. DM HTN Obesity HCV infection? No evidence of acute CVA, brain tumor, cerebral venous sinus thrombosis, meningitis or encephalitis at the present time. RECOMMENDATIONS/PLAN: Keep good hydration. Treat medical and GI diseases. ID consulted. GI consulted. HISTORY OF THE PRESENT ILLNESS: 46-y-old AA male patient with above medical disease had Hx of spleen thrombosis about 2 years ago. He developed symptoms of nausea, vomiting, abdominal pain, headaches, and fever as high as 103 per his for about 2 days before coming to the ER of [facility]. No mental status changes. No focalized motor or sensory deficits. He stated that his headaches decreased from 10/10 to 4-5/10 on 08/04. No nausea and vomiting on 08/14. PAST MEDICAL HISTORY: Please see above. PAST SURGERY HISTORY: Right rotate cuff surgery. Right knee surgery ALLERGY: Reviewed. MEDICATIONS: Refer to [facility] FAMILY HISTORY: Non contributory. SOCIAL HISTORY: Lives with his at home. Denies smoking and illicit drug use. He drinks alcohol occasionally. REVIEW OF SYSTEMS: Constitutional: No malnutrition, weight loss, cachexia. Head: No traumatic brain or head injury. Skin: No edema, or rash. Ear: No infection. Eyes: No vision loss or color blindness. Nose: No bleeding or purulent discharges. Hearing: No hearing decrease. Neck: No injury. Cardiac: HTN. Pulmonary: No COPD. GI: Spleen thrombosis. Urinary/genital: No dysuria, hematuria, incontinence, urinary retention. Endocrinologic: Diabetes Mellitus, obesity. Skeletomuscular: No muscular atrophy, deformity. Neurological: see HP. Psychiatric: Denies drug use/abuse. Otherwise, not [id number] review of systems. PHYSICAL EXAMINATION: General appearance is in subacute distress. HEENT: Normocephalic and nontraumatic. Eyes, nose, ears, and throat are unremarkable. Neck is supple. No lymphadenopathy. No bruits are heard over the carotid artery. No crepitus. Cardiovascular: S1, S2, regular rate and rhythm. Pulmonary: Clear to auscultation bilaterally. Abdomen: Bowel sounds are positive. Extremities: No rash, lesions, or edema. No restriction of range of motion NEUROLOGICAL EXAMINATION: Alert Oriented to time, place and person. PERRL. EOMI. CN: no focal findings. Muscle tone: within normal. Muscle strength: 5 DTR: 1+ due to obesity. Plantar reflex: Flexor response bilaterally Gait: At baseline normal. Sensory exam: no abnormal findings. No acute cerebellar signs elicited. F-T-N test fine. Objective Objective Vital Signs Date Time Temp Pulse Resp B/P Pulse Ox O2 Delivery O2 Flow Rate FiO2 08/14/16 11:56 88 175/104 08/14/16 07:00 97.8 20 94 Room Air 97.8 Intake and Output 08/14/16 07:00 Intake Total 1650 ml Output Total 1020 ml Balance 630 ml Intake Oral 1650 ml Output Urine Total 1000 ml Emesis 20 ml # Voids 4 Vitals Signs Vitals VS - Last 72 Hours, by Label Date Time Temp Pulse Resp B/P Pulse Ox O2 Delivery O2 Flow Rate FiO2 08/14/16 11:56 88 175/104 08/14/16 07:00 97.8 69 20 138/92 94 Room Air 97.8 08/14/16 03:20 98.0 64 20 136/76 94 Room Air 98.0 08/13/16 23:00 99.2 76 20 136/92 96 Room Air 99.2 08/13/16 20:00 Room Air 08/13/16 19:00 101.3 88 20 162/102 96 Room Air 101.3 08/13/16 18:45 101.6 101.6 08/13/16 17:15 103.0 103.0 08/13/16 15:00 98.0 75 20 161/99 95 Room Air 98.0 08/13/16 11:00 98.6 78 20 152/96 95 Room Air 98.6 08/13/16 08:35 88 162/102 08/13/16 07:00 162/97 08/13/16 07:00 101.4 80 20 162/102 94 Room Air 101.4 Laboratory Laboratory Laboratory Tests Test 08/13/16 16:25 08/14/16 04:20 08/14/16 07:44 08/14/16 11:49 Glucose (Fingerstick) 173mg/dL (70-99) 167mg/dL (70-99) 243mg/dL (70-99) Triglycerides Level 136mg/dL (0-150) Cholesterol Level 147mg/dL (0-200) LDL Cholesterol, Calculated 94mg/dL (0-100) VLDL Cholesterol, Calculated 27mg/dL (0-40) HDL Cholesterol 26mg/dL (40-60) Cholesterol/HDL Ratio 5.7 Procalcitonin 0.27ng/mL (0.00-0.10) Medication Medications Current Medications Acetaminophen (Tylenol) 325 mg STK-MED ONCE PO ; Start 08/14/16 at 04:27; Stop 08/14/16 at 04:28; Status DC Acetaminophen (Tylenol) 650 mg PRN Q6HRS PRN PO PAIN; Start 08/13/16 at 17:15; Stop 08/13/16 at 17:15; Status DC Acetaminophen (Tylenol) 650 mg PRN Q6HRS PRN PO PAIN Last administered on 21:01; Start 08/13/16 at 17:30; Stop 08/14/16 at 05:37; Status DC Acetaminophen (Tylenol) 650 mg PRN Q6HRS PRN PO MILD PAIN Last administered on 08/14/16 12:17; Start 08/14/16 at 05:37 Gadobutrol (Gadavist) 10 mmol 1X ONCE IV Last administered on 08/14/16 09:54 ; Start 08/14/16 at 09:45; Stop 08/14/16 at 09:48; Status DC Ibuprofen 400 mg 400 mg PRN Q4HRS PRN PO HEADACHE Last administered on 01:12; Start 08/13/16 at 17:45 Piperacillin Sod/ Tazobactam Sod/ Sodium Chloride (Zosyn/Iv Sodium Chloride 0.9 % 50ml) 50 ml @ 100 mls/hr Q6HRS IV Last administered on 08/14/16 12:18; Start 08/13/16 at 19:15 Comment Review of Relevant I have reviewed the following items sina (where applicable) has been applied. DESEAN HANCOCK MD Aug 14, 2016 13:58
[2016-08-14 15:00] VITALS: BP 160/100
[2016-08-14] MEDS ORDERED: ACETAMINOPHEN 325 MG TABLET. PO PRN (17:24)
[2016-08-14 19:00] VITALS: BP 160/111
[2016-08-14 21:12] LABS: BARBITURATES NEG (NEG); BENZODIAZEPINES NEG (NEG); CANNABINOIDS NEG (NEG); COCAINE NEG (NEG); METHADONE NEG (NEG); OPIATES NEG (NEG); PHENCYCLIDINE NEG (NEG)
[2016-08-14 21:19] LABS: ETHANOL, URINE NEG (NEG)
[2016-08-14] MEDS: ASA/APAP/CAFFEINE 250/250/65MG TABLET. PO PRN (22:20)
[2016-08-14 23:00] VITALS: BP 158/98
--- NOTE | 2016-08-15 00:03 | CONS ---
DATE OF CONSULTATION: 08/14/2016 REQUESTING PHYSICIAN: Dr. Shree Grimes. REASON FOR CONSULTATION: Fever and hepatitis C. HISTORY OF PRESENT ILLNESS: This is a 46-year-old -[place] gentleman with history of diabetes and hypertension, who also has had some spleen and liver problem. Evidently, liver biopsy done a year or so ago at , which was unrevealing other than VIDES was found. According to the patient, now the patient comes in with fever and chills that been going on for about 2-3 days with some nausea, vomited once. No diarrhea and abdominal pain. The patient has been admitted with 103 fever, normal white count. CT scan of the abdomen and pelvis showed evidence for cirrhosis of liver with portal hypertension and varices and splenomegaly. The patient is started empirically on Zosyn. The patient in fact also has had headache which the patient says he is feeling better. The headache has improved. Abdominal pain has improved. There is no more nausea or vomiting. PAST MEDICAL HISTORY: He has had a history of problems with enlarged spleen and some problem with liver with liver biopsy done at , at that time also hepatitis was checked and it was negative according to him. Do not have any records to review. The patient also has diabetes, hypertension and obesity. SOCIAL HISTORY: Negative for smoking. Very occasional alcohol use, no drug use. The patient used to drink heavy but he has stopped for last 11 years. ALLERGIES: No known drug allergies. CURRENT MEDICATIONS: Reviewed. The patient is on Zosyn. REVIEW OF SYSTEMS: As per HPI, all other systems reviewed are negative. PHYSICAL EXAMINATION: GENERAL: Alert, oriented gentleman, not in distress. VITAL SIGNS: Stable. T-max is 103. HEENT: Both pupils are round and reacting. No conjunctival lesion, no lesion in the mouth. NECK: Supple, no JVP. No lymphadenopathy. LUNGS: Clear. HEART: S1, S2 regular. No gallop or murmur. ABDOMEN: Soft, nontender. No organomegaly appreciated. EXTREMITIES: No edema or cyanosis. SKIN: Unremarkable. NEUROLOGIC: The patient is neurologically intact. LABORATORY DATA: White count is normal, actually was 4.5 yesterday, today is down to 3.8 and platelets 136,000. Sed rate is 14. BUN and creatinine normal. Hemoglobin A1c is 9.8. Liver functions are normal. Urinalysis unremarkable. Hepatitis screen showed Hep C antibody is 1.5, which is positive. Influenza screen is negative. Chest x-ray is unremarkable. Abdominal CT is showing evidence for splenomegaly, portal hypertension, and varices. IMPRESSION: 1. Fever, most likely viral illness with also headache, which is now improving and abdominal pain, nausea, and vomiting. 2. Cirrhosis of liver with portal hypertension, esophageal varices and splenomegaly. 3. Diabetes with poor control. 4. Hypertension. 5. Hepatitis C. RECOMMENDATIONS: Recommended supportive care, continue Zosyn for just today and hopefully no fever today, then may be able to scale down and with the blood cultures remaining negative, hepatitis C workup outpatient with genotype and viral load, discussion with the patient's done as well as with Dr. Grimes. Thank you very much, Dr. Grimes, for giving me the opportunity to participate in this patient's care. PETRONA RIVERA MD DR: ROBIN/angelia JOB#: [id number] / [id number]
[2016-08-15] MEDS ORDERED: PANTOPRAZOLE 40 MG TABLET.DR. PO ONE (05:13)
[2016-08-15] MEDS: IBUPROFEN 400 MG TABLET. PO PRN ×2 (05:19→08:37)
[2016-08-15] MEDS: PIPERACILLIN/TAZOBACTAM 3.375 GM in IV NORMAL SALINE 50ML 50 ML IV SCH (05:19)
[2016-08-15] MEDS: PANTOPRAZOLE 40 MG TABLET. PO SCH (05:19)
[2016-08-15] MEDS ORDERED: PANTOPRAZOLE 40 MG TABLET.DR. PO SCH (05:33)
[2016-08-15 07:00] VITALS: BP 151/111
--- NOTE | 2016-08-15 07:42 | DISCH ---
DISCHARGE INSTRUCTIONS Condition on Discharge Condition on Discharge: Stable Activity After Discharge Activity Instructions for Disc: No restrictions Diet after Discharge Diet after Discharge: Diabetic No Calorie Level Follow-Up Follow up with: dr avendano 1 w CRISTOBAL MONZON MD Aug 15, 2016 07:42
--- NOTE | 2016-08-15 07:46 | PDOC ---
Provider Note Provider Note [id number] CRISTOBAL MONZON MD Aug 15, 2016 07:46
[2016-08-15] MEDS: LISINOPRIL 10 MG TABLET PO SCH (08:37)
--- NOTE | 2016-08-15 10:00 | DS ---
DATE OF DISCHARGE: 08/15/2016 HOSPITAL SUMMARY: A 46-year-old black male patient of Dr. Son with a history of diabetes and hypertension who came in with fever and initially left upper quadrant pain and headache. The abdominal pain resolved and his headache continued. Laboratory study showed a normal CBC with actually a borderline low white count of 3800 and a normal sed rate of 14. Chemistry profile showed all normal liver function tests and A1c is high at 9.8 and cholesterol profile is very good. Urine drug screen was negative. Hepatitis A and B were negative. Hepatitis C antibody was positive. Influenza tests were negative. Chest x-ray was clear. Abdominal and pelvic CT showed multiple varicosities in the portal system, but no specific lesions were seen. MRI and MRA of the brain were normal as well. He was treated empirically with Zosyn while waiting for blood cultures which remained negative. His headache seems to be improved, abdominal pain has resolved and he is feeling better. He has not had fever now for about 36 hours and there are no meningeal signs and he is comfortable to be followed as an outpatient. He knows that if his fever recurs, this would problem of unclear etiology and he would have to return to the hospital. He notes that he has declined the use of insulin while in the hospital despite high blood sugars and the high hemoglobin A1c preferring to continue his current diabetic medications. FINAL DIAGNOSES: 1. Headache and fever, likely viral syndrome. 2. Positive hepatitis C antibody test, clinically inactive. 3. Poorly controlled type 2 diabetes mellitus and hypertension. OPERATIONS, PROCEDURES, COMPLICATIONS: None. CONSULTATIONS: Dr. Marquez, Dr. Zac Banks, Dr. Pandya. DISPOSITION: He will continue ibuprofen as needed for headache. Continue home meds for blood pressure and diabetes and will see Dr. Son in 1 week to consider the addition of sulfonylurea DPP4 inhibitor drug or perhaps even insulin to control his high A1cs. Continue all blood pressure medications, diabetic diet. Activity as tolerated and follow up as needed. PROGNOSIS: Good. CRISTOBAL MONZON MD DR: RICH/angelia JOB#: [id number] / [id number]
--- NOTE | 2016-08-15 10:52 | PDOC ---
Infectious Disease Note Subjective Subjective pt is feeling good ROS ROS GEN: Denies fevers, chills, sweats HEENT: Denies blurred vision, sore throat CV: Denies chest pain RESP: Denies shortness of air, cough GI: Denies n/v/d NEURO: Denies confusion, dizziness MSK: Denies weakness, joint pain/swelling Vital Sign Vital Signs Vital Signs Date Time Temp Pulse Resp B/P Pulse Ox O2 Delivery O2 Flow Rate FiO2 08/15/16 08:37 79 158/98 08/15/16 08:30 Room Air 08/15/16 07:00 96.6 18 95 96.6 Physical Exam PHYSICAL EXAM GENERAL: NAD, Alert HEENT: PERRL, OC/OP NECK: Supple, no JVD, no LN LUNGS: Clear HEART: S1S2, no gallop, no murmur ABD: Soft, NT, no organomegaly, no rebound EXT: No edema, no cyanosis RN VASCULAR: Alert, oriented x 3, no focal neurologic deficit SKIN: No rash IV: ok Labs Lab Laboratory Tests Test 08/14/16 11:49 08/14/16 15:58 08/14/16 19:58 08/14/16 20:45 Glucose (Fingerstick) 243mg/dL (70-99) 218mg/dL (70-99) 246mg/dL (70-99) Urine Opiates Screen Neg (NEG) Urine Methadone Screen Neg (NEG) Urine Barbiturates Neg (NEG) Urine Phencyclidine Screen Neg (NEG) Urine Amphetamine/Methamphetamine Neg (NEG) Urine Benzodiazepines Screen Neg (NEG) Urine Cocaine Screen Neg (NEG) Urine Cannabinoids Screen Neg (NEG) Urine Ethyl Alcohol Neg (NEG) Test 08/15/16 08:04 Glucose (Fingerstick) 170mg/dL (70-99) Objective Assessment Fever and chills resolved Adbominal pain N/V Headache Cirrhosis of liver Hep c Plan Plan of Care d/w dr Grimes ok to d/c f/u if needed PETRONA RIVERA MD Aug 15, 2016 10:52
[2016-08-15 11:00] VITALS: BP 180/121
[2016-08-17 06:26] LABS: ANTITHROMBIN III SEE SEPARATE REPORT; PROTEIN C ACTIVITY SEE SEPARATE REPORT; PROTEIN S ACTIVITY SEE SEPARATE REPORT
== END 2016-08-15 11:25 | disposition home or self-care (01) | DRG 864 ==
LOC: ER 19:33 → 5 NORTH 08-13 00:30
PROVIDERS: ADMIT Family Medicine; ATTEND Family Medicine
DX: R50.9 Fever, unspecified (principal); K76.6 Portal hypertension; Z68.41 Body mass index [BMI] 40.0-44.9, adult; R51 Headache; B34.9 Viral infection, unspecified; I10 Essential (primary) hypertension; E11.65 Type 2 diabetes mellitus with hyperglycemia; E66.9 Obesity, unspecified; K76.0 Fatty (change of) liver, not elsewhere classified; E11.43 Type 2 diabetes mellitus with diabetic autonomic (poly)neuropathy; K74.60 Unspecified cirrhosis of liver; K31.84 Gastroparesis; B19.20 Unspecified viral hepatitis C without hepatic coma; Z82.3 Family history of stroke; Z82.49 Family history of ischemic heart disease and other diseases of the circulatory system; Z83.3 Family history of diabetes mellitus
CPT/HCPCS: 36415; 70544; 70553; 71020; 74177; 80048; 80061; 80074; 80076; 81001; 82947; 83036; 83690; 84145; 85027; 85300; 85302; 85306; 85651; 86147; 87040; 87804; A9585; G0481; J0360; J1650; J1885; J2405; J2543; J3010; J7030; Q9967

== ENCOUNTER → 2016-09-02 | Day surgery (SDC) | payer BC, OTHER ==
[~2016-09-02] MED LIST changes: +FENTANYL PF 100 MCG/2 ML VIAL. IV PRN; +HYDROMORPHONE 2 MG/ML VIAL. IV PRN; +IV RINGERS,LACTATED 1000ML 1,000 ML IV SCH; +LIDOCAINE 1% 1 ML SYRINGE. ID PRN; +MORPHINE SULFATE 2 MG/ML DISP.SYRIN. IV PRN; +ONDANSETRON PF 4 MG/2 ML VIAL. IV PRN; +PROCHLORPERAZINE 10 MG/2 ML VIAL. IV PRN; +PROPOFOL 40 ML IV ONE
--- NOTE | 2016-09-02 12:31 | PDOC1 ---
History and Physical Date of Admission Date of Admission DATE: 09/02/16 TIME: 12:26 Identification/Chief Complaint Chief Complaint History of adenoma Problems: Source Source: Chart review, Patient History of Present Illness History of Present Illness 46 y/o male with h/o 15mm adenoma removed in 2013. F/u exam recommended in 3 years and presents for same. Currently w/o complaints. 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 Past Medical History Cardiovascular: HTN Psych: Anxiety Musculoskeletal: Osteoarthritis Endocrine: Diabetes Past Surgical History Past Surgical History: Other (knee surgery) Family History Family History: Cancer, Coronary Artery Disease, Diabetes, Hypertension, Stroke Social History Smoke: No ALCOHOL: rare Drugs: None Current Medications Current Medications Current Medications Ondansetron HCl (Zofran) 4 mg PRN Q6HRS PRN IV NAUSEA/VOMITING; Start 09/02/16 at 07:00; Stop 09/03/16 at 06:59 Fentanyl Citrate (Fentanyl 2ml Vial) 25 mcg PRN Q5MIN PRN IV MILD PAIN; Start 09/02/16 at 07:00; Stop 09/03/16 at 06:59 Fentanyl Citrate (Fentanyl 2ml Vial) 50 mcg PRN Q5MIN PRN IV MODERATE PAIN; Start 09/02/16 at 07:00; Stop 09/03/16 at 06:59 Morphine Sulfate 1 mg 1 mg PRN Q10MIN PRN IV SEVERE PAIN; Start 09/02/16 at 07: 00; Stop 09/03/16 at 06:59 Lactated Ringer's (Iv Lactated Ringers) 1,000 ml @ 0 mls/hr Q0M IV Last administered on 09/02/16t 12:23; Start 09/02/16 at 07:00; Stop 09/02/16 at 18:59 Lidocaine HCl 2 ml PRN 1X PRN ID PRIOR TO IV START; Start 09/02/16 at 07:00; Stop 09/03/16 at 06:59 Hydromorphone HCl (Dilaudid) 0.5 mg PRN Q10MIN PRN IV SEV PAIN, Second choice; Start 09/02/16 at 07:00; Stop 09/03/16 at 06:59 Prochlorperazine Edisylate 5 mg 5 mg PACU PRN PRN IV NAUSEA, MRX1; Start at 07:00; Stop 09/03/16 at 06:59 Propofol (Diprivan) 40 ml @ As Directed STK-MED ONCE IV ; Start 09/02/16 at 12: 17; Stop 09/02/16 at 12:18; Status DC Active Scripts Active Atorvastatin Calcium 10 Mg Tablet 1 Tab PO DAILY [Aspirin] 325 MG Tablet 325 Mg PO DAILYWBKFT Reported Folic Acid 1 Mg Tablet 1 Tab PO DAILY Victoza 3-Pako (Liraglutide) 0.6 Mg/0.1 Ml Pen.injctr 1.8 Mg SQ DAILY Omeprazole 40 Mg Capsule.dr 40 Mg PO DAILY Lisinopril 10 Mg Tablet 10 Mg PO DAILY Metformin Hcl 1,000 Mg Tablet 1,000 Mg PO BID Allergies Allergies: Coded Allergies: No Known Drug Allergies (Unverified , 09/02/16) ROS Review of System Otherwise negative. Physical Exam General: Alert, Oriented X3, Cooperative, No acute distress Lungs: Clear to auscultation Heart: S1S2, RRR, no gallops, no murmurs Abdomen: Normal bowel sounds, Soft, No tenderness, No hepatosplenomegaly, No masses Rectal Exam: deferred Extremities: No cyanosis, No edema Skin: No significant lesion Neuro: Normal gait, Normal speech, Strength at 5/5 X4 ext, Normal tone, Sensation intact, Cranial nerves 3-12 NL, Reflexes 2+ Psych/Mental Status: Mental status NL, Mood NL Vitals Vitals Vital Signs Date Time Temp Pulse Resp B/P Pulse Ox O2 Delivery O2 Flow Rate FiO2 09/02/16 12:13 97.3 100 20 97 97.3 VTE Prophylaxis Ordered VTE Prophylaxis Devices: No VTE Pharmacological Prophylaxi: No Assessment/Plan Assessment/Plan IMP: h/o large adenoma. PLAN: colonoscopy. JETHRO GLEASON MD Sep 02, 2016 12:31
--- NOTE | 2016-09-02 12:59 | PDOC4 ---
PROCEDURE Procedure colonoscopy with biopsies Ind: h/o adenoma Meds: per anesthesia Findings: 2mm polyp, cecum and 3mm polyp proximal transverse, both biopsied off. Otherwise normal exam to the cecum. Small internal hemorrhoids noted. [place]. well. IMP: small polyps REC: await path. f/u 2 weeks. resume meds, diet. repeat exam 5 years. JETHRO GLEASON MD Sep 02, 2016 12:58
[2016-09-02 13:22] VITALS: BP 122/89
--- NOTE | 2016-09-03 11:49 | PATHOLOGY ---
PATHOLOGY REPORT * * * * * * * * FINAL DIAGNOSIS: A. Colon biopsy, cecal polyp: - Consistent with prominent fold, with mucosal-associated lymphoid aggregate. B. Colon biopsies, proximal transverse colon polyp: - Tubular adenoma. COMMENT: There is no high-grade dysplasia or evidence of malignancy. (LOIM:; d/t: 09/03/16) REPORT ELECTRONICALLY SIGNED BY: Julio Cesar Gurrola M.D. DATE/TIME: 09/03/2016 11:48 * * * * * * * * GROSS PATHOLOGY: A. Received in formalin labeled "Ginger Duncan Jr., cecal polyp," is a segment of estrada soft tissue measuring 0.5 cm in maximum dimension. The specimen is submitted entirely in cassette A1. B. Received in formalin labeled "Ginger Duncan Jr., proximal transverse polyp," are two segments of estrada soft tissue measuring 0.6 x 0.5 x 0.1 cm in aggregate dimensions and measuring 0.5 cm each cm in maximum dimension. The specimen is submitted entirely in cassette B1. (CAA; 09/02/2016) INITIAL CPT CODE(S): A; 21514 B; 23313 Professional services performed [place] [facility] [place] [address] Technical services performed by [facility] at [address] [place] [address], [facility] [address], [place] [address]. SPECIMEN(S) RECEIVED: A.Cecal polyp B.Proximal transverse polyp CLINICAL HISTORY: History of polyps PATIENT: GINGER DUNCAN JR /AGE: 11 1970 (Age: 46) PATIENT #: [id number] ALT CASE #: SPECIMEN COLLECTION DATE: 09/02/2016 SPECIMEN RECEIVED DATE: 09/02/2016 [facility] - [address] [place] [address] - PHONE: [phone] * * * END OF REPORT * * *
== END | disposition home or self-care (01) ==
LOC: ENDOS 11:47
PROVIDERS: ATTEND Internal Medicine Gastroenterology
DX: D12.3 Benign neoplasm of transverse colon (principal); D12.0 Benign neoplasm of cecum; K64.8 Other hemorrhoids; E66.9 Obesity, unspecified; I10 Essential (primary) hypertension; F41.9 Anxiety disorder, unspecified; Z86.73 Personal history of transient ischemic attack (TIA), and cerebral infarction without residual deficits
CPT/HCPCS: 45380; J2704; 88305

== ENCOUNTER 2016-10-02 07:06 | Day surgery (SDC) | payer BC ==
[~2016-10-02] VITALS: Ht 190.5 cm; Wt 154.2 kg
[~2016-10-02 07:06] MED LIST changes: +BUPIVACAINE-EPI 0.25%-1:200000 MPF 30 ML VIAL. ONE; -FENTANYL PF 100 MCG/2 ML VIAL. IV PRN; -HYDROMORPHONE 2 MG/ML VIAL. IV PRN; +HYDROmorphone 2 MG/ML VIAL IV PRN; +METF-620 PO; -METF10002 PO; -MORPHINE SULFATE 2 MG/ML DISP.SYRIN. IV PRN; -PROPOFOL 40 ML IV ONE; +fentaNYL PF VIAL 100 MCG/2 ML VIAL IV PRN
[2016-10-02] MEDS ORDERED: PROPOFOL 100 ML IV ONE ×2 (08:04→08:47)
[2016-10-02] MEDS ORDERED: DEXAMETHASONE SOD PHOS 20 MG/5 ML VIAL. ONE (08:04)
[2016-10-02] MEDS ORDERED: SUCCINYLCHOLINE 200 MG/10 ML VIAL. ONE (08:04)
[2016-10-02] MEDS ORDERED: ONDANSETRON PF 4 MG/2 ML VIAL. ONE (08:04)
[2016-10-02] MEDS ORDERED: LIDOCAINE 2% PF Vial for OR 5 ML VIAL. ONE (08:05)
[2016-10-02] MEDS ORDERED: fentaNYL PF VIAL 250 MCG/5 ML VIAL ONE (08:05)
[2016-10-02] MEDS ORDERED: ROCURONIUM 50 MG/5 ML VIAL. ONE (08:05)
[2016-10-02] MEDS ORDERED: LABETALOL 20 MG/4 ML DISP.SYRIN. ONE (09:07)
[2016-10-02] MEDS ORDERED: DESFLURANE 61 TO 120 MINUTES IH ONE (09:27)
[2016-10-02] MEDS ORDERED: GLYCOPYRROLATE 1 MG/5 ML VIAL. ONE (09:29)
[2016-10-02] MEDS ORDERED: NEOSTIGMINE METHYLSULFATE 5 MG/5 ML SYRINGE. ONE (09:29)
[2016-10-02] MEDS ORDERED: fentaNYL PF VIAL 100 MCG/2 ML VIAL ONE (10:14)
--- NOTE | 2016-10-02 10:15 | PDOC ---
BRIEF OPERATIVE NOTE Date: October 02, 2016 Pre-Op Diagnosis Incarcerated ventral hernia Post-Op Diagnosis Same Procedure Performed Robotic assisted ventral hernia repair with mesh Surgeon Luigi Anesthesia Type: General Blood Loss 10ml Specimens Obtained None Findings as above Complications None YAHIR RUIZ MD October 02, 2016 10:15
--- NOTE | 2016-10-02 10:16 | DISCH ---
DISCHARGE INSTRUCTIONS Condition on Discharge Condition on Discharge: Stable Activity After Discharge Activity Instructions for Disc: Avoid exertion Other activity instructions: No liftiing >20lbs for 2 weeks Lifting Instructions after Dis: No heavy lifting Diet after Discharge Diet after Discharge: Regular Wound Incision Care Other wound/incision instructi: Elsi showfredrick in 24 hours Contacting the after DC Call your doctor for: If your condition worsens Follow-Up Follow up with: Dr Ruiz in 2 weeks YAHIR RUIZ MD October 02, 2016 10:16
[2016-10-02] MEDS ORDERED: HYDR-971 PO (10:28)
[2016-10-02] MEDS: fentaNYL PF VIAL 100 MCG/2 ML VIAL IV PRN ×2 (10:38→10:47)
[2016-10-02] MEDS: MORPHINE SULFATE 2 MG/ML DISP.SYRIN. IV PRN ×2 (10:46→11:00)
[2016-10-02] MEDS ORDERED: HYDROcodone/APAP 5/325MG 1 TAB TABLET PO ONE (11:15)
[2016-10-02 11:22] VITALS: BP 115/67
--- NOTE | 2016-10-02 12:21 | OP ---
DATE OF SURGERY: 10/02/2016 PREOPERATIVE DIAGNOSIS: Obstructive ventral hernia. POSTOPERATIVE DIAGNOSIS: Obstructive ventral hernia. PROCEDURE: Robotic-assisted laparoscopic ventral hernia repair with mesh. SURGEON: Demetrius Ruiz M.D. INDICATIONS: The patient is a 46-year-old gentleman who has complained of an enlarging bulge just above his umbilicus, that is becoming more painful. Procedure of robotic-assisted laparoscopic ventral hernia repair with mesh was explained to the patient in detail. Risks, benefits were also discussed including bleeding, infection, injury to intra-abdominal contents, possibly necessitating further open operations. Alternatives of this procedure were also discussed with the patient who seemed to understand and gave verbal and written consent to have the procedure performed. DESCRIPTION OF PROCEDURE: The patient was taken to the operating room and placed in the supine position. General anesthesia was initiated. Once the patient was asleep and intubated, his abdomen was prepped and draped in usual sterile fashion using ChloraPrep. An area in the left upper quadrant was injected with 0.25% Marcaine with epinephrine. Incision was made with an 11-blade scalpel and a 5 mm Visiport was placed under direct visualization into the abdomen. Pneumoperitoneum was then achieved. Once this was complete, 5 mm camera was placed within the abdomen. The abdomen was inspected and it was noted that he had some incarcerated omentum within the hernia defect, which was approximately 3 cm. At this point, the da Alejandro ports were placed under direct visualization, one in the left mid abdomen and one in the left lower abdomen and the 5 mm Visiport was changed out for 8 mm da Alejandro port. At this point, the robot was brought in and docked to all ports. A 30-degree camera was placed in the center port, a grasper in the lower port and EndoShears in the upper port. At this point, the surgeon went to the robotic console. Using the grasper and EndoShears, the incarcerated omentum was reduced from the hernia defect. The hernia defect was then closed with a running V-Loc nonabsorbable suture. Ventralight mesh was placed within the abdomen and this was sewn in place with a running absorbable V-Loc suture covering the hernia defect. At this point, the da Alejandro robot was undocked, ports were all removed. The pneumoperitoneum was reduced. Skin incisions at all ports were closed with 4-0 subcuticular Monocryl. Mastisol, Steri-Strips and Band-Aids were applied as dressings. The patient was awakened, extubated in the operating room, taken to recovery in stable condition. All sponge, instrument counts listed as correct. Estimated blood loss 10 mL. DEMETRIUS RUIZ MD DR: ERICKA/angelia JOB#: [id number] / [id number] YRIS Turpin MD
== END 2016-10-02 12:02 | disposition home or self-care (01) ==
LOC: SURG 07:06
PROVIDERS: ATTEND Surgery
DX: K43.6 Other and unspecified ventral hernia with obstruction, without gangrene (principal); I10 Essential (primary) hypertension; E66.9 Obesity, unspecified; E11.9 Type 2 diabetes mellitus without complications; F41.9 Anxiety disorder, unspecified; Z86.73 Personal history of transient ischemic attack (TIA), and cerebral infarction without residual deficits; Z87.39 Personal history of other diseases of the musculoskeletal system and connective tissue; Z86.39 Personal history of other endocrine, nutritional and metabolic disease
CPT/HCPCS: 49653; 82947; C1781; C1782; J0330; J1100; J1170; J2270; J2405; J2704; J2710; J3010; J3490; J7120

== ENCOUNTER → 2017-06-25 | Outpatient (CLI) | payer BC | END | disposition home or self-care (01) | LOC: KCIC US 08:49 | DX: K76.0 Fatty (change of) liver, not elsewhere classified (principal); R16.0 Hepatomegaly, not elsewhere classified | CPT/HCPCS: 76705 ==

== ENCOUNTER 2017-07-16 03:07 | Emergency (ER) | payer BC | END 2017-07-16 06:31 | disposition home or self-care (01) | LOC: ER 03:07 | DX: F41.9 Anxiety disorder, unspecified (principal); I10 Essential (primary) hypertension; G89.29 Other chronic pain; E11.9 Type 2 diabetes mellitus without complications; E66.9 Obesity, unspecified; Z79.899 Other long term (current) drug therapy; Z68.39 Body mass index [BMI] 39.0-39.9, adult | CPT/HCPCS: 93005; 99284 ==

== ENCOUNTER → 2017-07-27 | Outpatient (CLI) | payer BC | END | disposition home or self-care (01) | LOC: RT 08:04 | DX: G47.19 Other hypersomnia (principal) | CPT/HCPCS: G0399 ==

== ENCOUNTER 2017-12-19 12:37 | Emergency (ER) | payer BC ==
[2017-12-19 13:25] LABS: ADD MAN DIFF? NO
[2017-12-19 13:28] LABS: BASO % 1 % (0-3); EOS # 0.2 x10^3/uL (0.0-0.7); EOS % 3 % (0-3); HEMATOCRIT 45.5 % (39.0-53.0); LYMPH # 1.8 x10^3/uL (1.0-4.8); LYMPH % 38 % (24-48); MEAN CORPUSCULAR HEMOGLOBIN 28 pg (25-35); MEAN CORPUSCULAR HGB CONC 33 g/dL (31-37); MEAN CORPUSCULAR VOLUME 85 fL (79-100); MONO # 0.5 x10^3/uL (0.0-1.1); MONO % 11 % (0-9); NEUT # 2.3 x10^3uL (1.8-7.7); NEUT % 48 % (31-73); PLATELET COUNT 216 x10^3/uL (140-400); RED BLOOD COUNT 5.39 x10^6/uL (4.30-5.70); RED CELL DISTRIBUTION WIDTH 14.7 % (11.5-14.5); WHITE BLOOD COUNT 4.8 x10^3/uL (4.0-11.0)
[2017-12-19 13:38] LABS: ANION GAP 7 (6-14); BLOOD UREA NITROGEN 8 mg/dL (8-26); BUN/CREATININE RATIO 9 (6-20); CARBON DIOXIDE 29 mmol/L (21-32); CHLORIDE 103 mmol/L (98-107); CREATININE 0.9 mg/dL (0.7-1.3); GLUCOSE 115 mg/dL (70-99); POTASSIUM 4.3 mmol/L (3.5-5.1); SODIUM 139 mmol/L (136-145)
[2017-12-19] MEDS: LISINOPRIL 10 MG TABLET PO (13:43)
[2017-12-19 13:45] LABS: ALBUMIN 3.7 g/dL (3.4-5.0); ALK PHOS 55 U/L (46-116); ALT (SGPT) 35 U/L (16-63); AST (SGOT) 20 U/L (15-37); TOTAL BILIRUBIN 0.5 mg/dL (0.2-1.0); TOTAL PROTEIN 7.3 g/dL (6.4-8.2)
[2017-12-19 13:48] LABS: TROPONINI < 0.017 ng/mL (0.000-0.055)
== END 2017-12-19 15:05 | disposition home or self-care (01) ==
LOC: ER 12:37
DX: R07.89 Other chest pain (principal); R42 Dizziness and giddiness; I10 Essential (primary) hypertension; F41.9 Anxiety disorder, unspecified; E11.9 Type 2 diabetes mellitus without complications
CPT/HCPCS: 36415; 71046; 80053; 84484; 85025; 93005; 96374; 99285-25; J2060

== ENCOUNTER 2018-10-01 15:21 | Emergency (ER) | payer BC ==
[~2018-10-01] VITALS: Ht 190.5 cm; Wt 147.0 kg
[~2018-10-01 15:21] MED LIST changes: -BUPIVACAINE-EPI 0.25%-1:200000 MPF 30 ML VIAL. ONE; +HYDR-3164 PO; -HYDROmorphone 2 MG/ML VIAL IV PRN; -IV RINGERS,LACTATED 1000ML 1,000 ML IV SCH; -LIDOCAINE 1% 1 ML SYRINGE. ID PRN; -METF-620 PO; +METF10007 PO; -ONDANSETRON PF 4 MG/2 ML VIAL. IV PRN; -PROCHLORPERAZINE 10 MG/2 ML VIAL. IV PRN; -fentaNYL PF VIAL 100 MCG/2 ML VIAL IV PRN
--- NOTE | 2018-10-01 15:57 | PHYS DOC ---
Past Medical History Past Medical History: Anxiety, Diabetes-Type II, Hypertension Additional Past Medical Histor: blood clot in spleen Past Surgical History: No Surgical History, Other Additional Past Surgical Histo: right knee; r rotator cuff,cardiac cath no stents Alcohol Use: None Drug Use: None Adult General Chief Complaint Chief Complaint: CHEST PAIN HPI HPI Patient is a 48 year old M who reports he has had intermittent chest pain for 3-4 weeks but constant over last 48 hours. He reports pain is L upper chest which does not radiate into back, arm or neck. He has mild cough but does not feel SOB. He denies nausea or diophoresis. He reports the pain is "sharp". Pt does have risk factors of diabetes and hypertension, along with family history. He has been seen previously in this ER for chest pain and states he underwent a cardiac cath probably about 3 years ago that was "normal". Review of Systems Review of Systems Constitutional: Denies fever or chills HENT: Denies nasal congestion or sore throat Respiratory: Denies cough or shortness of breath Cardiovascular: Reports chest pain GI: Denies abdominal pain, nausea, vomiting, bloody stools or diarrhea : Denies dysuria or hematuria Musculoskeletal: Denies back pain or joint pain Integument: Denies rash or skin lesions Neurologic: Denies headache, focal weakness or sensory changes All other systems were reviewed and found to be within normal limits, except as documented in this note. Current Medications Current Medications Current Medications Medications (Trade) Dose Ordered Sig/Sergio Start Time Stop Time Status Last Admin Dose Admin Aspirin (Children'S Aspirin) 324 mg 1X ONCE 10/01/18 16:00 10/01/18 16:01 DC 10/01/18 16:45 324 MG Ketorolac Tromethamine (Toradol 15mg Vial) 15 mg 1X ONCE 10/01/18 17:15 10/01/18 17:16 DC 10/01/18 17:24 15 MG Allergies Allergies Allergies Coded Allergies Type Severity Reaction Last Updated Verified No Known Drug Allergies 10/02/16 No Physical Exam Physical Exam Constitutional: Well developed, well nourished, no acute distress, non-toxic appearance. HENT: Normocephalic, atraumatic, bilateral external ears normal, oropharynx moist, no oral exudates, nose normal. Eyes: PERRLA, EOMI Neck: Normal range of motion, no tenderness, supple, no stridor. Cardiovascular:Heart rate regular rhythm, no murmur Lungs & Thorax: Bilateral breath sounds clear to auscultation Abdomen: Bowel sounds normal, soft, no tenderness, no masses, no pulsatile masses. Skin: Warm, dry, no erythema, no rash. Back: No tenderness, no CVA tenderness. Extremities: No tenderness, no cyanosis, no clubbing, ROM intact, no edema. Neurologic: Alert and oriented X 3, normal motor function, normal sensory function, no focal deficits noted. Psychologic: Affect normal, judgement normal, mood normal. Current Patient Data Vital Signs Vital Signs Date Time Temp Pulse Resp B/P (MAP) Pulse Ox O2 Delivery O2 Flow Rate FiO2 10/01/18 16:30 74 154/96 (115) 97 Room Air 10/01/18 15:25 98.2 18 98.2 Lab Values Laboratory Tests Test 10/01/18 15:50 White Blood Count 6.7 x10^3/uL (4.0-11.0) Red Blood Count 4.31 x10^6/uL (4.30-5.70) Hemoglobin 12.0 g/dL (13.0-17.5) L Hematocrit 36.9 % (39.0-53.0) L Mean Corpuscular Volume 86 fL (79-100) Mean Corpuscular Hemoglobin 28 pg (25-35) Mean Corpuscular Hemoglobin Concent 33 g/dL (31-37) Red Cell Distribution Width 14.8 % (11.5-14.5) H Platelet Count 220 x10^3/uL (140-400) Neutrophils (%) (Auto) 51 % (31-73) Lymphocytes (%) (Auto) 36 % (24-48) Monocytes (%) (Auto) 10 % (0-9) H Eosinophils (%) (Auto) 3 % (0-3) Basophils (%) (Auto) 1 % (0-3) Neutrophils # (Auto) 3.4 x10^3uL (1.8-7.7) Lymphocytes # (Auto) 2.4 x10^3/uL (1.0-4.8) Monocytes # (Auto) 0.6 x10^3/uL (0.0-1.1) Eosinophils # (Auto) 0.2 x10^3/uL (0.0-0.7) Basophils # (Auto) 0.0 x10^3/uL (0.0-0.2) Sodium Level 140 mmol/L (136-145) Potassium Level 3.9 mmol/L (3.5-5.1) Chloride Level 103 mmol/L (98-107) Carbon Dioxide Level 23 mmol/L (21-32) Anion Gap 14 (6-14) Blood Urea Nitrogen 12 mg/dL (8-26) Creatinine 1.1 mg/dL (0.7-1.3) Estimated GFR (Cockcroft-Gault) 86.1 BUN/Creatinine Ratio 11 (6-20) Glucose Level 219 mg/dL (70-99) H Calcium Level 8.9 mg/dL (8.5-10.1) Total Bilirubin 0.2 mg/dL (0.2-1.0) Aspartate Amino Transferase (AST) 25 U/L (15-37) Alanine Aminotransferase (ALT) 42 U/L (16-63) Alkaline Phosphatase 46 U/L (46-116) Creatine Kinase 140 U/L (39-308) Creatine Kinase MB (Mass) < 0.5 ng/mL (0.0-3.6) Creatine Kinase MB Relative Index % (0-4) Troponin I Quantitative < 0.017 ng/mL (0.000-0.055) LU-Wvw-Q-Type Natriuretic Peptide < 5 pg/mL (0-124) Total Protein 7.0 g/dL (6.4-8.2) Albumin 3.6 g/dL (3.4-5.0) Albumin/Globulin Ratio 1.1 (1.0-1.7) Laboratory Tests 10/01/18 15:50 Laboratory Tests 10/01/18 15:50 EKG EKG EKG at 1536: NSR, no STEMI Reviewed by Dr. Price Radiology/Procedures Radiology/Procedures CXR: neg Course & Med Decision Making Course & Med Decision Making Pertinent Labs and Imaging studies reviewed. (See chart for details) Discussed test results with pt. No acute process noted, but discussed importance of follow up with PCP or cardiology. HEART score: History: Slightly suspicious: 0 EKG: Normal: 0 Age: 45-65: 1 Risk factors: 1 or 2: 1 Troponin: normal: 0 Total: 2, low risk Pt to return if sx worsen at anytime. Discussed monitoring blood sugar closely since it was elevated today. Dragon Disclaimer Dragon Disclaimer This electronic medical record was generated, in whole or in part, using a voice recognition dictation system. Departure Departure Impression: Primary Impression: Chest pain Disposition: HOME, SELF-CARE Condition: STABLE Referrals: UNKNOWN PCP NAME (PCP) Patient Instructions: Chest Pain (Nonspecific), [id number] Additional Instructions: While your tests today in the ER look good, this does not rule out your heart as the cause of this pain. You may need further testing as an outpatient. Call your primary care doctor to schedule a follow up visit. Return if symptoms worsen at anytime. Scripts Naproxen (NAPROSYN) 500 Mg Tablet 1 TAB PO BID PRN for PAIN, #20 TAB 1 Refill Prov: EDWIN SHAIKH 10/01/18 EDWIN SHAIKH October 01, 2018 15:56
[2018-10-01] MEDS ORDERED: ASPIRIN CHEWABLE 81 MG TABLET. PO ONE (16:00)
[2018-10-01 16:01] LABS: BASO % 1 % (0-3); EOS # 0.2 x10^3/uL (0.0-0.7); EOS % 3 % (0-3); HEMATOCRIT 36.9 % (39.0-53.0); LYMPH # 2.4 x10^3/uL (1.0-4.8); LYMPH % 36 % (24-48); MEAN CORPUSCULAR HEMOGLOBIN 28 pg (25-35); MEAN CORPUSCULAR HGB CONC 33 g/dL (31-37); MEAN CORPUSCULAR VOLUME 86 fL (79-100); MONO # 0.6 x10^3/uL (0.0-1.1); MONO % 10 % (0-9); NEUT # 3.4 x10^3uL (1.8-7.7); NEUT % 51 % (31-73); PLATELET COUNT 220 x10^3/uL (140-400); RED BLOOD COUNT 4.31 x10^6/uL (4.30-5.70); RED CELL DISTRIBUTION WIDTH 14.8 % (11.5-14.5); WHITE BLOOD COUNT 6.7 x10^3/uL (4.0-11.0)
[2018-10-01 16:17] LABS: CALCIUM 8.9 mg/dL (8.5-10.1); CREATININE 1.1 mg/dL (0.7-1.3); GFR 86.1; POTASSIUM 3.9 mmol/L (3.5-5.1)
[2018-10-01 16:23] LABS: ALBUMIN 3.6 g/dL (3.4-5.0); ALBUMIN/GLOBULIN RATIO 1.1 (1.0-1.7); TOTAL BILIRUBIN 0.2 mg/dL (0.2-1.0)
[2018-10-01 16:30] VITALS: BP 154/96
--- NOTE | 2018-10-01 16:30 | RAD ---
Two-view chest 10/01/2018 CLINICAL INDICATION: Chest pain. COMPARISON: Chest 12/19/2017, 08/13/2016 FINDINGS: Stable mild bibasilar atelectasis. Cardiac and mediastinal silhouettes are unremarkable. No pleural effusion, pneumothorax or focal consolidation. IMPRESSION: Mild bibasilar atelectasis. Electronically signed by: Vic Pickard MD (10/01/2018 4:27 PM) [id number]
[2018-10-01 16:54] LABS: CREATINE KINASE 140 U/L (39-308)
[2018-10-01] MEDS ORDERED: NAPR-683 PO (16:59)
[2018-10-01] MEDS ORDERED: KETOROLAC 15 MG/ML VIAL. IV ONE (17:15)
--- NOTE | 2018-10-03 11:28 | EKG ---
[facility] [address] [place] [address] Test Date: 2018-10-01 Test Time: 15:36:00 Pat Name: GINGER RUGGIERO Department: Room: Gender: Bodily Injury Adjuster: : 1970 Requested By: EDWIN SHAIKH Order Number: [id number] Reading MD: August Linares Measurements Intervals [place] Rate: 81 P: 51 SC: 176 QRS: -11 QRSD: 88 T: 12 QT: 366 QTc: 430 Interpretive Statements SINUS RHYTHM LEFTWARD AXIS Electronically Signed On 10-22-2018 12:31:20 CDT by August Linares
== END 2018-10-01 17:29 | disposition home or self-care (01) ==
LOC: ER 15:21
DX: R07.89 Other chest pain (principal); E11.9 Type 2 diabetes mellitus without complications; F41.9 Anxiety disorder, unspecified; I10 Essential (primary) hypertension; Z79.82 Long term (current) use of aspirin
CPT/HCPCS: 36415; 71046; 80053; 82553; 83880; 84484; 85025; 93005; 96374; 99285; J1885

== ENCOUNTER 2018-10-03 14:01 | Emergency (ER) | payer BC ==
[~2018-10-03] VITALS: Ht 190.5 cm; Wt 147.0 kg
[~2018-10-03 14:01] MED LIST changes: +NAPR-683 PO
[2018-10-03] MEDS ORDERED: ASPIRIN 325 MG TABLET PO ONE (15:00)
--- NOTE | 2018-10-03 15:00 | PHYS DOC ---
Past Medical History Past Medical History: Anxiety, Diabetes-Type II, Hypertension Additional Past Medical Histor: blood clot in spleen Past Surgical History: No Surgical History, Other Additional Past Surgical Histo: right knee; r rotator cuff,cardiac cath no stents Alcohol Use: None Drug Use: None Adult General Chief Complaint Chief Complaint: CHEST PAIN HPI HPI Patient is a 48 year old male who presents with complaining of chest pain and hematuria. Patient complaining of substernal pressure pain for 2 weeks and was seen in this emergency room 2 days ago without normal finding. Patient states the chest pain is intermittently with activity and denies shortness of breath, nausea and vomiting, palpitation, dizziness, focal neuro deficit. Patient coming of sudden onset of hematuria today without abdominal or flank pain and history of kidney stone or hematuria. Review of Systems Review of Systems Constitutional: Denies fever or chills [] Eyes: Denies change in visual acuity, redness, or eye pain [] HENT: Denies nasal congestion or sore throat [] Respiratory: Denies cough or shortness of breath [] Cardiovascular: No additional information not addressed in HPI [] GI: Denies abdominal pain, nausea, vomiting, bloody stools or diarrhea [] : Denies dysuria, reports hematuria [] Musculoskeletal: Denies back pain or joint pain [] Integument: Denies rash or skin lesions [] Neurologic: Denies headache, focal weakness or sensory changes [] Endocrine: Denies polyuria or polydipsia [] All other systems were reviewed and found to be within normal limits, except as documented in this note. Current Medications Current Medications Current Medications Medications (Trade) Dose Ordered Sig/[facility] Start Time Stop Time Status Last Admin Dose Admin Aspirin ([place] Aspirin) 325 mg 1X ONCE 10/03/18 15:00 10/03/18 15:01 DC 10/03/18 15:07 325 MG Allergies Allergies Allergies Coded Allergies Type Severity Reaction Last Updated Verified No Known Drug Allergies 10/02/16 No Physical Exam Physical Exam Constitutional: Well developed, well nourished, no acute distress, non-toxic appearance, morbidly obese. [] HENT: Normocephalic, atraumatic Eyes: PERRLA, EOMI, conjunctiva normal, no discharge. [] Neck: Normal range of motion, no tenderness, supple, no stridor. [] Cardiovascular:Heart rate regular rhythm, no murmur [] Lungs & Thorax: Bilateral breath sounds clear to auscultation [] Abdomen: Bowel sounds normal, soft, no tenderness, no masses, no pulsatile masses. [] Skin: Warm, dry, no erythema, no rash. [] Back: No tenderness, no CVA tenderness. [] Extremities: No tenderness, no cyanosis, no clubbing, ROM intact, no edema. [] Neurologic: Alert and oriented X 3, normal motor function, normal sensory function, no focal deficits noted. [] Psychologic: Affect normal, judgement normal, mood normal. [] Current Patient Data Vital Signs Vital Signs Date Time Temp Pulse Resp B/P (MAP) Pulse Ox O2 Delivery O2 Flow Rate FiO2 10/03/18 14:13 98.2 95 18 170/112 (131) 98 Room Air 98.2 Lab Values Laboratory Tests Test 10/03/18 14:24 10/03/18 14:54 10/03/18 15:00 Urine Collection Type Unknown Urine Color Vandana Urine Clarity Clear Urine pH 5.5 Urine Specific [place] 1.025 Urine Protein 100 mg/dL (NEG-TRACE) Urine Glucose (UA) Negative mg/dL (NEG) Urine Ketones (Stick) Negative mg/dL (NEG) Urine Blood Large (NEG) Urine Nitrite Negative (NEG) Urine Bilirubin Negative (NEG) Urine Urobilinogen Dipstick 0.2 mg/dL (0.2 mg/dL) Urine Leukocyte Esterase Negative (NEG) Urine RBC Tntc /HPF (0-2) Urine WBC 0 /HPF (0-4) Urine Bacteria 0 /HPF (0-FEW) Urine Opiates Screen Neg (NEG) Urine Methadone Screen Neg (NEG) Urine Barbiturates Neg (NEG) Urine Phencyclidine Screen Neg (NEG) Urine Amphetamine/Methamphetamine Neg (NEG) Urine Benzodiazepines Screen Neg (NEG) Urine Cocaine Screen Neg (NEG) Urine Cannabinoids Screen Neg (NEG) Urine Ethyl Alcohol Neg (NEG) POC Troponin I 0.01 ng/ml (<0.08) White Blood Count 5.8 x10^3/uL (4.0-11.0) Red Blood Count 4.15 x10^6/uL (4.30-5.70) L Hemoglobin 11.5 g/dL (13.0-17.5) L Hematocrit 35.4 % (39.0-53.0) L Mean Corpuscular Volume 85 fL (79-100) Mean Corpuscular Hemoglobin 28 pg (25-35) Mean Corpuscular Hemoglobin Concent 33 g/dL (31-37) Red Cell Distribution Width 14.8 % (11.5-14.5) H Platelet Count 203 x10^3/uL (140-400) Neutrophils (%) (Auto) 58 % (31-73) Lymphocytes (%) (Auto) 30 % (24-48) Monocytes (%) (Auto) 9 % (0-9) Eosinophils (%) (Auto) 3 % (0-3) Basophils (%) (Auto) 1 % (0-3) Neutrophils # (Auto) 3.3 x10^3uL (1.8-7.7) Lymphocytes # (Auto) 1.7 x10^3/uL (1.0-4.8) Monocytes # (Auto) 0.5 x10^3/uL (0.0-1.1) Eosinophils # (Auto) 0.2 x10^3/uL (0.0-0.7) Basophils # (Auto) 0.0 x10^3/uL (0.0-0.2) Prothrombin Time 13.6 SEC (11.7-14.0) Prothrombin Time INR 1.1 (0.8-1.1) PTT 31 SEC (24-38) Sodium Level 139 mmol/L (136-145) Potassium Level 4.2 mmol/L (3.5-5.1) Chloride Level 104 mmol/L (98-107) Carbon Dioxide Level 25 mmol/L (21-32) Anion Gap 10 (6-14) Blood Urea Nitrogen 10 mg/dL (8-26) Creatinine 1.1 mg/dL (0.7-1.3) Estimated GFR (Cockcroft-Gault) 86.1 BUN/Creatinine Ratio 9 (6-20) Glucose Level 229 mg/dL (70-99) H Calcium Level 8.8 mg/dL (8.5-10.1) Magnesium Level 1.7 mg/dL (1.8-2.4) L Total Bilirubin 0.6 mg/dL (0.2-1.0) Aspartate Amino Transferase (AST) 20 U/L (15-37) Alanine Aminotransferase (ALT) 39 U/L (16-63) Alkaline Phosphatase 47 U/L (46-116) Creatine Kinase 150 U/L (39-308) Troponin I Quantitative < 0.017 ng/mL (0.000-0.055) [id number]-Type Natriuretic Peptide 39 pg/mL (0-124) Total Protein 6.9 g/dL (6.4-8.2) Albumin 3.4 g/dL (3.4-5.0) Albumin/Globulin Ratio 1.0 (1.0-1.7) Lipase 73 U/L (73-393) Laboratory Tests 10/03/18 15:00 Laboratory Tests 10/03/18 15:00 EKG EKG EKG interpreted by me. EKG at 1407 showed normal sinus rhythm at rate of 91, ST and T-wave abnormalities in inferior leads without reciprocal changes. EKG was checked with Dr. Linares on-call timing adjuster was of concern for acute ST elevation or eye Radiology/Procedures Radiology/Procedures [address] [address] IMAGING REPORT Signed PATIENT: GINGER RUGGIERO ACCOUNT: [id number] : 1970 LOCATION: ER AGE: 48 SEX: M EXAM STATUS: REG ER ORD. PHYSICIAN: CARLOS HERNANDEZ MD REASON: chest pain.DRAWING BLOOD, IV PROCEDURE: CHEST PA & LATERAL Chest, PA and Lateral: Technique: PA and lateral views of the chest were obtained. History: Chest pain. Comparison: 10/01/2018. Findings: Unchanged heart size. Mild bibasilar lung airspace opacities likely atelectasis or infiltrates slightly increased since prior exam. Moderate degenerative changes thoracic spine. IMPRESSION: Mild increase in bibasilar lung airspace opacities likely atelectasis or infiltrates. Electronically signed by: Bryant Mazariegos MD (10/03/2018 3:29 PM) [facility] DICTATED and SIGNED BY: BRYANT MAZARIEGOS MD DATE: 10/03/18 15[address] [facility] [address] [place], [place] [id number] IMAGING REPORT Signed PATIENT: GINGER RUGGIERO ACCOUNT: [id number] : 1970 LOCATION: ER AGE: 48 SEX: M EXAM STATUS: REG ER ORD. PHYSICIAN: CARLOS HERNANDEZ MD REASON: hematuria PROCEDURE: CT ABDOMEN PELVIS WO CONTRAST Examination: CT abdomen pelvis without contrast HISTORY: History of hematuria COMPARISON: 08/04/2016 TECHNIQUE: Axial CT images of the abdomen pelvis were performed without contrast. Coronal and sagittal reformats are performed Exposure: One or more of the following individualized dose reduction techniques were utilized for this examination: 1. Automated exposure control 2. Adjustment of the mA and/or kV according to patient size 3. Use of iterative reconstruction technique FINDINGS: The bibasilar lungs are clear. No evidence of free air identified in the abdomen The evaluation of the solid organs is limited due to lack of IV contrast. The evaluation of bowel is limited due to lack of oral contrast. Diffuse decreased attenuation noted in the liver likely hepatic steatosis. The visualized spleen, adrenals grossly appears unremarkable. The gallbladder is mildly distended. The stomach is mildly distended The visualized pancreas grossly appears unremarkable The small bowel is nondilated. Appendix is normal. Feces and gas noted in the colon The urinary bladder is mildly distended There are numerous varices and dilated collateral vessels identified in the abdomen similar to prior exam The urinary bladder is mildly distended. Minimal fat stranding identified about the urinary bladder. No evidence of intrarenal collecting system calculi or hydronephrosis identified however there is a tiny 2 mm calcification identified in the distal right ureter region, best visualized on series 2 image 215 however differentiation from a pelvic phlebolith is limited given there is no hydronephrosis. Mild degenerative changes lumbar spine. IMPRESSION: 1. Tiny 2 mm calcification identified in the distal right ureter region, best visualized on series 2 image 215 however distinction from a pelvic phlebolith is limited given there is no hydronephrosis. 2. Minimal fat stranding identified about the urinary bladder. Correlate for cystitis. 3. Numerous prominent collaterals and varices identified in the abdomen again identified. 4. Hepatic steatosis. Electronically signed by: Bryant Mazariegos MD (10/03/2018 4:04 PM) [facility] DICTATED and SIGNED BY: BRYANT MAZARIEGOS MD DATE: 10/03/18 1604 Course & Med Decision Making Course & Med Decision Making Pertinent Labs and Imaging studies reviewed. (See chart for details) Evaluation of patient in ER showed 48-year-old male patient presented to ER with complaining of chest pain for 3 weeks and hematuria started today. Patient did not have any flank pain. Patient denies chest pain while he was in ER. Context evaluation did not acute finding except for some change of EKG that discussed with without having concern for a STEMI. CT of abdomen and pelvis showed 2 mm right ureteral stone. Patient was informed about test results. Patient did not have flank pain and was advised to increase fluid intake and strain all of his urine and follow with urologist. Patient also was advised to follow-up with his primary care physician regarding episodes of chest pain for possible stress test as outpatient. Dragon Disclaimer Dragon Disclaimer This electronic medical record was generated, in whole or in part, using a voice recognition dictation system. Departure Departure Impression: Primary Impression: Ureterolithiasis Additional Impressions: Hematuria Chest pain Uncontrolled diabetes mellitus Hypomagnesemia Disposition: HOME, SELF-CARE (at [facility]) Condition: IMPROVED Referrals: UNKNOWN PCP NAME (PCP) OBED GROVER MD Patient Instructions: Chest Pain (Nonspecific), Diet for Kidney Stones, Hematuria, Adult, Hyperglycemia, Hypomagnesemia, Kidney Stones Additional Instructions: Drink plenty of liquids Follow-up with your primary care physician in 3-5 days Return to ER if not getting better Strain all of your urine Follow-up with on-call urologist in 2 or 3 days Scripts Tamsulosin Hcl (FLOMAX) 0.4 Mg Cap.er.24h 1 CAP PO DAILY, #14 CAP 0 Refills Prov: CARLOS HERNANDEZ MD 10/03/18 Problem Qualifiers Additional Impressions: Hematuria Hematuria type: unspecified type Qualified Codes: R31.9 - Hematuria, unspecified Chest pain Chest pain type: unspecified Qualified Codes: R07.9 - Chest pain, unspecified Uncontrolled diabetes mellitus Diabetes mellitus type: other specified (including LEXI) Glycemic state: with hyperglycemia Qualified Codes: E13.65 - Other specified diabetes mellitus with hyperglycemia CARLOS HERNANDEZ MD October 03, 2018 15:00
[2018-10-03 15:05] LABS: BILIRUBIN,URINE NEGATIVE (NEG); CLARITY,URINE CLEAR; COLOR,URINE AMBER; NITRITE,URINE NEGATIVE (NEG); PH,URINE 5.5; PROTEIN,URINE 100 mg/dL (NEG-TRACE); UROBILINOGEN,URINE 0.2 mg/dL (0.2 mg/dL)
[2018-10-03 15:07] LABS: BACTERIA,URINE 0 /HPF (0-FEW); RBC,URINE TNTC /HPF (0-2); WBC,URINE 0 /HPF (0-4)
[2018-10-03 15:12] LABS: BARBITURATES NEG (NEG); BENZODIAZEPINES NEG (NEG); CANNABINOIDS NEG (NEG); COCAINE NEG (NEG); METHADONE NEG (NEG); OPIATES NEG (NEG); PHENCYCLIDINE NEG (NEG)
[2018-10-03 15:12] LABS: BASO % 1 % (0-3); EOS # 0.2 x10^3/uL (0.0-0.7); EOS % 3 % (0-3); HEMATOCRIT 35.4 % (39.0-53.0); HEMOGLOBIN 11.5 g/dL (13.0-17.5); LYMPH # 1.7 x10^3/uL (1.0-4.8); LYMPH % 30 % (24-48); MEAN CORPUSCULAR HEMOGLOBIN 28 pg (25-35); MEAN CORPUSCULAR HGB CONC 33 g/dL (31-37); MEAN CORPUSCULAR VOLUME 85 fL (79-100); MONO # 0.5 x10^3/uL (0.0-1.1); MONO % 9 % (0-9); NEUT # 3.3 x10^3uL (1.8-7.7); NEUT % 58 % (31-73); PLATELET COUNT 203 x10^3/uL (140-400); RED BLOOD COUNT 4.15 x10^6/uL (4.30-5.70); RED CELL DISTRIBUTION WIDTH 14.8 % (11.5-14.5); WHITE BLOOD COUNT 5.8 x10^3/uL (4.0-11.0)
[2018-10-03 15:14] LABS: AMPHETAMINE/METHAMPHETAMINE NEG (NEG)
[2018-10-03 15:18] LABS: CALCIUM 8.8 mg/dL (8.5-10.1); CREATININE 1.1 mg/dL (0.7-1.3); GFR 86.1; POTASSIUM 4.2 mmol/L (3.5-5.1)
[2018-10-03 15:23] LABS: ALBUMIN 3.4 g/dL (3.4-5.0); MAGNESIUM 1.7 mg/dL (1.8-2.4); TOTAL BILIRUBIN 0.6 mg/dL (0.2-1.0); TOTAL PROTEIN 6.9 g/dL (6.4-8.2)
--- NOTE | 2018-10-03 15:32 | RAD ---
Chest, PA and Lateral: Technique: PA and lateral views of the chest were obtained. History: Chest pain. Comparison: 10/01/2018. Findings: Unchanged heart size. Mild bibasilar lung airspace opacities likely atelectasis or infiltrates slightly increased since prior exam. Moderate degenerative changes thoracic spine. IMPRESSION: Mild increase in bibasilar lung airspace opacities likely atelectasis or infiltrates. Electronically signed by: Bryant Mazariegos MD (10/03/2018 3:29 PM) [facility]
[2018-10-03 15:51] LABS: PROTHROMBIN TIME PATIENT 13.6 SEC (11.7-14.0)
--- NOTE | 2018-10-03 16:08 | RAD ---
Examination: CT abdomen pelvis without contrast HISTORY: History of hematuria COMPARISON: 08/04/2016 TECHNIQUE: Axial CT images of the abdomen pelvis were performed without contrast. Coronal and sagittal reformats are performed Exposure: One or more of the following individualized dose reduction techniques were utilized for this examination: 1. Automated exposure control 2. Adjustment of the mA and/or kV according to patient size 3. Use of iterative reconstruction technique FINDINGS: The bibasilar lungs are clear. No evidence of free air identified in the abdomen The evaluation of the solid organs is limited due to lack of IV contrast. The evaluation of bowel is limited due to lack of oral contrast. Diffuse decreased attenuation noted in the liver likely hepatic steatosis. The visualized spleen, adrenals grossly appears unremarkable. The gallbladder is mildly distended. The stomach is mildly distended The visualized pancreas grossly appears unremarkable The small bowel is nondilated. Appendix is normal. Feces and gas noted in the colon The urinary bladder is mildly distended There are numerous varices and dilated collateral vessels identified in the abdomen similar to prior exam The urinary bladder is mildly distended. Minimal fat stranding identified about the urinary bladder. No evidence of intrarenal collecting system calculi or hydronephrosis identified however there is a tiny 2 mm calcification identified in the distal right ureter region, best visualized on series 2 image 215 however differentiation from a pelvic phlebolith is limited given there is no hydronephrosis. Mild degenerative changes lumbar spine. IMPRESSION: 1. Tiny 2 mm calcification identified in the distal right ureter region, best visualized on series 2 image 215 however distinction from a pelvic phlebolith is limited given there is no hydronephrosis. 2. Minimal fat stranding identified about the urinary bladder. Correlate for cystitis. 3. Numerous prominent collaterals and varices identified in the abdomen again identified. 4. Hepatic steatosis. Electronically signed by: Bryant Mazariegos MD (10/03/2018 4:04 PM) [facility]
[2018-10-03] MEDS ORDERED: TAMS0.4C97 PO (16:44)
[2018-10-03] MEDS ORDERED: TAMSULOSIN 0.4 MG CAP.ER.24H. PO ONE (16:45)
[2018-10-03 17:00] VITALS: BP 141/86
--- NOTE | 2018-10-04 07:21 | EKG ---
[facility] [address] [place] [address] Test Date: 2018-10-03 Test Time: 14:07:59 Pat Name: GINGER RUGGIERO Department: Room: Gender: Boiler Maker: : 1970 Requested By: CARLOS HERNANDEZ Order Number: [id number] Reading MD: August Linares Measurements Intervals [place] Rate: 91 P: 86 PA: 178 QRS: 8 QRSD: 86 T: 31 QT: 354 QTc: 437 Interpretive Statements SINUS RHYTHM ST & T ABNORMALITY, CONSIDER RECENT INFERIOR MYOCARDIAL OR PERICARDIAL DAMAGE Electronically Signed On 10-22-2018 12:49:16 CDT by August Linares
== END 2018-10-03 17:10 | disposition home or self-care (01) ==
LOC: ER 14:01
DX: N20.1 Calculus of ureter (principal); R07.89 Other chest pain; E11.65 Type 2 diabetes mellitus with hyperglycemia; K76.0 Fatty (change of) liver, not elsewhere classified; E83.42 Hypomagnesemia; F41.9 Anxiety disorder, unspecified; I10 Essential (primary) hypertension; Z79.82 Long term (current) use of aspirin; E66.01 Morbid (severe) obesity due to excess calories; Z68.41 Body mass index [BMI] 40.0-44.9, adult
CPT/HCPCS: 36415; 71046; 74176; 80053; 80307; 81001; 82550; 83690; 83735; 83880; 84484; 85025; 85610; 85730; 93005; 99285-25

== ENCOUNTER 2019-04-16 14:26 | Emergency (ER) | payer BC ==
[~2019-04-16] VITALS: Ht 190.5 cm; Wt 144.2 kg
[~2019-04-16 14:26] MED LIST changes: +OMEP40CA45 PO; -OMEP40CA5 PO; +TAMS0.4C97 PO
[2019-04-16 15:01] VITALS: BP 162/99
[2019-04-16] MEDS ORDERED: NAPR-514 PO (15:38)
--- NOTE | 2019-04-16 15:38 | PHYS DOC ---
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 Pt states he has been taking his allopurinol, ibuprofen, and naproxen with some relief of his swelling but continued pain. Pt currently rates his pain a 10/10 on the pain scale. He states that he has been taking each of the medications once a day. He denies any fever, and drainage, numbness, tingling, or weakness of the affected hand. He states that extra strength Tylenol has helped his pain some. Pt states he only has 2 Naproxen left. All other ROS is neg unless otherwise noted in HPI. Review of Systems Review of Systems See Above Allergies Allergies Allergies Coded Allergies Type Severity Reaction Last Updated Verified No Known Drug Allergies 10/02/16 No Physical Exam Physical Exam See Above Constitutional: Well developed, well nourished, no acute distress, non-toxic appearance. [] HENT: Normocephalic, atraumatic, bilateral external ears normal, oropharynx moist, no oral exudates, nose normal. [] Eyes: PERRLA, EOMI, conjunctiva normal, no discharge. [] Neck: Normal range of motion, no stridor. [] Cardiovascular:Heart rate regular rhythm, no murmur [] Lungs & Thorax: Bilateral breath sounds clear to auscultation [] Skin: Warm, dry, erythema and swelling noted to left hand consistent with gout Extremities: No cyanosis, no clubbing, ROM intact, 1+ edema L thumb and palm Neurologic: Alert and oriented X 3, normal motor function, normal sensory function, no focal deficits noted. [] Psychologic: Affect normal, judgement normal, mood normal. [] Current Patient Data Vital Signs Vital Signs Date Time Temp Pulse Resp B/P (MAP) Pulse Ox O2 Delivery O2 Flow Rate FiO2 04/16/19 15:01 97.9 99 21 162/99 (120) 95 Room Air 97.9 EKG EKG [] Radiology/Procedures Radiology/Procedures [] Course & Med Decision Making Course & Med Decision Making Pertinent Labs and Imaging studies reviewed. (See chart for details) [] Dragon Disclaimer Dragon Disclaimer This electronic medical record was generated, in whole or in part, using a voice recognition dictation system. Departure Departure Impression: Primary Impression: Acute gout of left hand Disposition: HOME, SELF-CARE Condition: STABLE Referrals: UNKNOWN PCP NAME (PCP) Patient Instructions: Gout, [id number] Additional Instructions: Fill the prescription and use it as directed with food. Follow-up with your primary care doctor next week as planned. Return to the ER if symptoms worsen. Scripts Naproxen (NAPROXEN) 500 Mg Tablet 1 TAB PO BID PRN for PAIN for 15 Days, #30 TAB 0 Refills take with food Prov: MARY WILLOUGHBY APRN 04/16/19 Problem Qualifiers Primary Impression: Acute gout of left hand Gout etiology: unspecified cause Qualified Codes: M10.9 - Gout, unspecified MARY WILLOUGHBY ESTIMATOR AND DRAFTER Apr 16, 2019 15:38
== END 2019-04-16 15:55 | disposition home or self-care (01) ==
LOC: ER 14:26
DX: M10.9 Gout, unspecified (principal); M79.641 Pain in right hand; F41.9 Anxiety disorder, unspecified; E11.9 Type 2 diabetes mellitus without complications; I10 Essential (primary) hypertension
CPT/HCPCS: 99282

== ENCOUNTER 2019-05-06 14:41 | Emergency (ER) | payer BC ==
[~2019-05-06] VITALS: Ht 190.5 cm; Wt 144.2 kg
[~2019-05-06 14:41] MED LIST changes: +NAPR-514 PO
[2019-05-06 14:45] VITALS: BP 163/97
[2019-05-06] MEDS ORDERED: LIDO15SO2 MM (16:00)
[2019-05-06] MEDS ORDERED: AMOX500C PO (16:00)
--- NOTE | 2019-05-06 16:00 | PHYS DOC ---
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 Patient states that on and Thursday he took amoxicillin twice a day that he got from his and he stated that it seemed to get better. She currently rates his pain a 3 out of 10. Review of Systems Review of Systems Integument: Lesion to top of mouth. Denies rash or skin lesions [] All other systems were reviewed and found to be within normal limits, except as documented in this note. Allergies Allergies Allergies Coded Allergies Type Severity Reaction Last Updated Verified No Known Drug Allergies 10/02/16 No Physical Exam Physical Exam Constitutional: Well developed, well nourished, no acute distress, non-toxic appearance. [] HENT: Normocephalic, atraumatic, bilateral external ears normal, oropharynx moist, no oral exudates, nose normal. [] Eyes: PERRLA, EOMI, conjunctiva normal, no discharge. [] Neck: Normal range of motion, no tenderness, supple, no stridor. [] Cardiovascular:Heart rate regular rhythm, no murmur [] Lungs & Thorax: Bilateral breath sounds clear to auscultation [] Abdomen: Bowel sounds normal, soft, no tenderness, no masses, no pulsatile masses. [] Skin: Oval lesion that is open to roof of mouth. Warm, dry, no erythema, no rash. [] Back: No tenderness, no CVA tenderness. [] Extremities: No tenderness, no cyanosis, no clubbing, ROM intact, no edema. [] Neurologic: Alert and oriented X 3, normal motor function, normal sensory function, no focal deficits noted. [] Psychologic: Affect normal, judgement normal, mood normal. [] Current Patient Data Vital Signs Vital Signs Date Time Temp Pulse Resp B/P (MAP) Pulse Ox O2 Delivery O2 Flow Rate FiO2 05/06/19 14:45 97.7 67 18 163/97 (119) 97 Room Air 97.7 EKG EKG [] Radiology/Procedures Radiology/Procedures [] Course & Med Decision Making Course & Med Decision Making Alert and oriented. Speaks in full clear senses. Skin pink warm and dry. Vital signs within normal limits. Patient has a ovaluar shaped area that looks to be a blister that has popped and open. No drainage. Patient denies penile discharge or any reason he would have sexual transmitted disease. He denies any rashes. Has a history of hypertension and diabetes. Denies burning the top of his mouth or injury. I have had Dr Price examine this patient and she states to give him more amoxicillin and Viscous Lidocaine and to follow up with ENT. Dragon Disclaimer Dragon Disclaimer This electronic medical record was generated, in whole or in part, using a voice recognition dictation system. Departure Departure Impression: Primary Impression: Lesion of mouth Disposition: HOME, SELF-CARE Condition: STABLE Referrals: UNKNOWN PCP NAME (PCP) CHERI MONZON MD Patient Instructions: Medical Screening Exam Additional Instructions: Follow up with primary care provider or ENT. Use medication as prescribed. Scripts Lidocaine HCl (Lidocaine HCl Viscous) 15 Ml Solution 1 ML MM QID PRN for PAIN, #1 MISC Prov: PATRICIA MORIN CERTIFIED CAREGIVER 05/06/19 Amoxicillin (AMOXICILLIN) 500 Mg Capsule 1 CAP PO BID for 5 Days, #10 CAP Prov: PATRICIA MORIN CERTIFIED CAREGIVER 05/06/19 PATRICIA MORIN CERTIFIED CAREGIVER May 06, 2019 16:00
== END 2019-05-06 16:10 | disposition home or self-care (01) ==
LOC: ER 14:41
DX: K13.79 Other lesions of oral mucosa (principal); F41.9 Anxiety disorder, unspecified; E11.9 Type 2 diabetes mellitus without complications; I10 Essential (primary) hypertension; Z98.890 Other specified postprocedural states
CPT/HCPCS: 99283

== ENCOUNTER 2019-06-29 17:18 | Emergency (ER) | payer BC ==
[~2019-06-29 17:18] MED LIST changes: +AMOX500C PO; +LIDO20SO10 MM
== END 2019-06-29 19:44 | disposition left against medical advice (07) ==
LOC: ER 17:18
DX: R35.0 Frequency of micturition (principal); Z53.21 Procedure and treatment not carried out due to patient leaving prior to being seen by health care provider

== ENCOUNTER 2019-07-01 12:47 | Emergency (ER) | payer BC ==
[~2019-07-01] VITALS: Ht 190.5 cm; Wt 144.0 kg
[2019-07-01] MEDS ORDERED: IV NORMAL SALINE 1000ML BAG 1,000 ML IV SCH (14:22)
--- NOTE | 2019-07-01 14:28 | PHYS DOC ---
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 He states he will start his urine stream and then I will cut off and then it will start again. He states sometimes he has urinary incontinence. He states this been going on since Thursday. States he's been getting hot flashes denies any nausea needed. States he does have a history of a kidney stone. Rates his pain an 10 out 10. States the pain is sharp. Review of Systems Review of Systems GI: Right sided abdominal pain, nausea, denies vomiting, bloody stools or diarrhea [] : dysuria or denies hematuria [] Musculoskeletal: Right flank. Denies back pain or joint pain [] All other systems were reviewed and found to be within normal limits, except as documented in this note. Current Medications Current Medications Current Medications Medications (Trade) Dose Ordered Sig/Sergio Start Time Stop Time Status Last Admin Dose Admin Ceftriaxone Sodium (Rocephin) 1 gm 1X ONCE 07/01/19 15:15 07/01/19 15:16 DC 07/01/19 15:30 1 GM Fentanyl Citrate (Fentanyl 2ml Vial) 50 mcg 1X ONCE 07/01/19 14:30 07/01/19 14:31 DC 07/01/19 15:12 50 MCG Ondansetron HCl (Zofran) 4 mg 1X ONCE 07/01/19 14:30 07/01/19 14:31 DC 07/01/19 15:14 4 MG Sodium Chloride 1,000 ml @ 1,000 mls/hr Q1H 07/01/19 14:22 07/01/19 15:21 DC 07/01/19 15:17 1,000 MLS/HR Allergies Allergies Allergies Coded Allergies Type Severity Reaction Last Updated Verified No Known Drug Allergies 10/02/16 No Physical Exam Physical Exam Constitutional: Well developed, well nourished, no acute distress, non-toxic appearance. [] HENT: Normocephalic, atraumatic, bilateral external ears normal, oropharynx moist, no oral exudates, nose normal. [] Eyes: PERRLA, EOMI, conjunctiva normal, no discharge. [] Neck: Normal range of motion, no tenderness, supple, no stridor. [] Cardiovascular:Heart rate regular rhythm, no murmur [] Lungs & Thorax: Bilateral breath sounds clear to auscultation [] Abdomen: Bowel sounds normal, soft, no tenderness, no masses, no pulsatile masses. [] Skin: Warm, dry, no erythema, no rash. [] Back: No tenderness, right CVA tenderness. [] Extremities: No tenderness, no cyanosis, no clubbing, ROM intact, no edema. [] Neurologic: Alert and oriented X 3, normal motor function, normal sensory function, no focal deficits noted. [] Psychologic: Affect normal, judgement normal, mood normal. [] Current Patient Data Vital Signs Vital Signs Date Time Temp Pulse Resp B/P (MAP) Pulse Ox O2 Delivery O2 Flow Rate FiO2 07/01/19 15:42 15 07/01/19 14:12 150/74 (99) 96 Lab Values Laboratory Tests Test 07/01/19 12:57 07/01/19 15:10 Urine Collection Type Unknown Urine Color Yellow Urine Clarity Cloudy Urine pH 5.5 Urine Specific [place] 1.025 Urine Protein >=300 mg/dL (NEG-TRACE) Urine Glucose (UA) Negative mg/dL (NEG) Urine Ketones (Stick) Negative mg/dL (NEG) Urine Blood Large (NEG) Urine Nitrite Negative (NEG) Urine Bilirubin Negative (NEG) Urine Urobilinogen Dipstick 0.2 mg/dL (0.2 mg/dL) Urine Leukocyte Esterase Moderate (NEG) Urine RBC >40 /HPF (0-2) Urine WBC >40 /HPF (0-4) Urine Bacteria Many /HPF (0-FEW) Urine Mucus Mod /LPF White Blood Count 8.4 x10^3/uL (4.0-11.0) Red Blood Count 5.31 x10^6/uL (4.30-5.70) Hemoglobin 14.2 g/dL (13.0-17.5) Hematocrit 43.4 % (39.0-53.0) Mean Corpuscular Volume 82 fL (79-100) Mean Corpuscular Hemoglobin 27 pg (25-35) Mean Corpuscular Hemoglobin Concent 33 g/dL (31-37) Red Cell Distribution Width 14.0 % (11.5-14.5) Platelet Count 212 x10^3/uL (140-400) Neutrophils (%) (Auto) 77 % (31-73) H Lymphocytes (%) (Auto) 14 % (24-48) L Monocytes (%) (Auto) 8 % (0-9) Eosinophils (%) (Auto) 0 % (0-3) Basophils (%) (Auto) 1 % (0-3) Neutrophils # (Auto) 6.4 x10^3/uL (1.8-7.7) Lymphocytes # (Auto) 1.2 x10^3/uL (1.0-4.8) Monocytes # (Auto) 0.7 x10^3/uL (0.0-1.1) Eosinophils # (Auto) 0.0 x10^3/uL (0.0-0.7) Basophils # (Auto) 0.1 x10^3/uL (0.0-0.2) Sodium Level 137 mmol/L (136-145) Potassium Level 3.8 mmol/L (3.5-5.1) Chloride Level 100 mmol/L (98-107) Carbon Dioxide Level 27 mmol/L (21-32) Anion Gap 10 (6-14) Blood Urea Nitrogen 11 mg/dL (8-26) Creatinine 1.1 mg/dL (0.7-1.3) Estimated GFR (Cockcroft-Gault) 85.7 BUN/Creatinine Ratio 10 (6-20) Glucose Level 250 mg/dL (70-99) H Calcium Level 8.7 mg/dL (8.5-10.1) Total Bilirubin 0.6 mg/dL (0.2-1.0) Aspartate Amino Transferase (AST) 16 U/L (15-37) Alanine Aminotransferase (ALT) 30 U/L (16-63) Alkaline Phosphatase 58 U/L (46-116) Total Protein 7.8 g/dL (6.4-8.2) Albumin 3.5 g/dL (3.4-5.0) Albumin/Globulin Ratio 0.8 (1.0-1.7) L Laboratory Tests 07/01/19 15:10 Laboratory Tests 07/01/19 15:10 EKG EKG [] Radiology/Procedures Radiology/Procedures [] Impressions: [facility] [address] [place] [address] IMAGING REPORT Signed PATIENT: GINGER RUGGIERO ACCOUNT: [id number] : 1970 LOCATION: ER AGE: 49 SEX: M EXAM STATUS: REG ER ORD. PHYSICIAN: PATRICIA MORIN APRN REASON: right flank PROCEDURE: CT ABDOMEN PELVIS WO CONTRAST CT abdomen pelvis without contrast dated 07/01/2019. Comparison made to 08/12/2016. CLINICAL INDICATION: Right flank pain. TECHNIQUE: Continues axial imaging the M pelvis performed without the administration of IV or oral contrast. One or more of the following individualized dose reduction techniques were utilized for this examination: 1. Automated exposure control 2. Adjustment of the mA and/or kV according to patient size 3. Use of iterative reconstruction technique. FINDINGS: Limited images of the lung bases are clear. Heart size is mildly enlarged. No pleural or pericardial effusion. There is diffuse low-density of the liver, compatible with fatty infiltration. No apparent mass. Biliary tree normal in caliber. The gallbladder is unremarkable. Spleen is normal in size. Pancreas and adrenal glands are unremarkable. Kidneys are symmetric in attenuation and size with no calcific stone or hydronephrosis. Unopacified GI tract is normal in caliber and contour. No focal bowel wall thickening. Scattered diverticula within the colon. No paracolonic inflammatory changes. The appendix is normal in caliber. There are multiple venous collaterals in the mesentery and perigastric region no adenopathy or ascites. Images of the pelvis show nondistended urinary bladder. The prostate gland is normal in size. No free pelvic fluid or pelvic lymphadenopathy. Small left inguinal hernia containing only fat. Small pelvic phleboliths, unchanged. Bone windows show no acute findings. Mild multilevel spondylosis. IMPRESSION: 1. No acute abnormality of abdomen or pelvis. Normal appendix. 2. No renal stone or hydronephrosis. 3. Heterogeneous low-density of the liver, nonspecific. This could be related to fatty infiltration and/or hepatocellular disease. 4. Multiple venous collaterals in the mesentery with ill-definition of the portal confluence. This could be related to chronic portal vein occlusion, stable from prior exam. 5. Diverticulosis with no evidence of acute diverticulitis. Electronically signed by: Matthew Evans MD (07/01/2019 3:07 PM) [id number] DICTATED and SIGNED BY: MATTHEW EVANS MD DATE: 07/01/19 1501 Course & Med Decision Making Course & Med Decision Making Pertinent Labs and Imaging studies reviewed. (See chart for details) Alert and oriented. Ambulatory and steady gait. Skin pink warm and dry. Right CVA tenderness. Abdomen soft and nontender. Afebrile. Speaks in full clear sentences. Lungs are clear to auscultation in all lobes. Patient is chest pain, shortness of air, diarrhea, numbness or tingling, headache, dizziness, weakness, visual changes. [] Dragon Disclaimer Dragon Disclaimer This electronic medical record was generated, in whole or in part, using a voice recognition dictation system. Departure Departure Impression: Primary Impression: Urinary tract infection Disposition: 01 HOME, SELF-CARE Condition: STABLE Referrals: UNKNOWN PCP NAME (PCP) Patient Instructions: Urinary Tract Infection Additional Instructions: Drink plenty of fluids. Take medication with food until it is gone. Scripts Ondansetron (ONDANSETRON ODT) 4 Mg Tab.rapdis 1 TAB PO PRN Q6-8HRS, #16 TAB Prov: PATRICIA MORIN APRN 07/01/19 Cephalexin (KEFLEX) 500 Mg Capsule 1 CAP PO BID for 7 Days, #14 CAP 0 Refills Prov: PATRICIA MORIN APRN 07/01/19 Problem Qualifiers Primary Impression: Urinary tract infection Urinary tract infection type: site unspecified Hematuria presence: with hematuria Qualified Codes: N39.0 - Urinary tract infection, site not specified; R31.9 - Hematuria, unspecified PATRICIA MORIN APRN Jul 01, 2019 14:28
[2019-07-01] MEDS ORDERED: ONDANSETRON PF 4 MG/2 ML VIAL. IV ONE (14:30)
[2019-07-01] MEDS ORDERED: fentaNYL PF VIAL 100 MCG/2 ML VIAL IV ONE (14:30)
[2019-07-01 14:43] LABS: BILIRUBIN,URINE NEGATIVE (NEG); CLARITY,URINE CLOUDY; COLOR,URINE YELLOW; NITRITE,URINE NEGATIVE (NEG); PH,URINE 5.5; PROTEIN,URINE >=300 mg/dL (NEG-TRACE); UROBILINOGEN,URINE 0.2 mg/dL (0.2 mg/dL)
[2019-07-01 14:47] LABS: BACTERIA,URINE MANY /HPF (0-FEW); RBC,URINE >40 /HPF (0-2); WBC,URINE >40 /HPF (0-4)
--- NOTE | 2019-07-01 15:10 | RAD ---
CT abdomen pelvis without contrast dated 07/01/2019. Comparison made to 08/12/2016. CLINICAL INDICATION: Right flank pain. TECHNIQUE: Continues axial imaging the M pelvis performed without the administration of IV or oral contrast. One or more of the following individualized dose reduction techniques were utilized for this examination: 1. Automated exposure control 2. Adjustment of the mA and/or kV according to patient size 3. Use of iterative reconstruction technique. FINDINGS: Limited images of the lung bases are clear. Heart size is mildly enlarged. No pleural or pericardial effusion. There is diffuse low-density of the liver, compatible with fatty infiltration. No apparent mass. Biliary tree normal in caliber. The gallbladder is unremarkable. Spleen is normal in size. Pancreas and adrenal glands are unremarkable. Kidneys are symmetric in attenuation and size with no calcific stone or hydronephrosis. Unopacified GI tract is normal in caliber and contour. No focal bowel wall thickening. Scattered diverticula within the colon. No paracolonic inflammatory changes. The appendix is normal in caliber. There are multiple venous collaterals in the mesentery and perigastric region no adenopathy or ascites. Images of the pelvis show nondistended urinary bladder. The prostate gland is normal in size. No free pelvic fluid or pelvic lymphadenopathy. Small left inguinal hernia containing only fat. Small pelvic phleboliths, unchanged. Bone windows show no acute findings. Mild multilevel spondylosis. IMPRESSION: 1. No acute abnormality of abdomen or pelvis. Normal appendix. 2. No renal stone or hydronephrosis. 3. Heterogeneous low-density of the liver, nonspecific. This could be related to fatty infiltration and/or hepatocellular disease. 4. Multiple venous collaterals in the mesentery with ill-definition of the portal confluence. This could be related to chronic portal vein occlusion, stable from prior exam. 5. Diverticulosis with no evidence of acute diverticulitis. Electronically signed by: Matthew Evans MD (07/01/2019 3:07 PM) [id number]
[2019-07-01] MEDS ORDERED: cefTRIAXone IV Push 1 GM VIAL. IVP ONE (15:15)
[2019-07-01 15:27] LABS: BASO # 0.1 x10^3/uL (0.0-0.2); BASO % 1 % (0-3); EOS % 0 % (0-3); HEMATOCRIT 43.4 % (39.0-53.0); HEMOGLOBIN 14.2 g/dL (13.0-17.5); LYMPH # 1.2 x10^3/uL (1.0-4.8); LYMPH % 14 % (24-48); MEAN CORPUSCULAR HEMOGLOBIN 27 pg (25-35); MEAN CORPUSCULAR HGB CONC 33 g/dL (31-37); MEAN CORPUSCULAR VOLUME 82 fL (79-100); MONO # 0.7 x10^3/uL (0.0-1.1); MONO % 8 % (0-9); NEUT # 6.4 x10^3/uL (1.8-7.7); NEUT % 77 % (31-73); PLATELET COUNT 212 x10^3/uL (140-400); RED BLOOD COUNT 5.31 x10^6/uL (4.30-5.70); WHITE BLOOD COUNT 8.4 x10^3/uL (4.0-11.0)
[2019-07-01 15:37] LABS: CALCIUM 8.7 mg/dL (8.5-10.1); CREATININE 1.1 mg/dL (0.7-1.3); GFR 85.7; POTASSIUM 3.8 mmol/L (3.5-5.1)
[2019-07-01 15:43] LABS: ALBUMIN 3.5 g/dL (3.4-5.0); ALBUMIN/GLOBULIN RATIO 0.8 (1.0-1.7); TOTAL BILIRUBIN 0.6 mg/dL (0.2-1.0); TOTAL PROTEIN 7.8 g/dL (6.4-8.2)
[2019-07-01] MEDS ORDERED: CEPH-264 PO (16:06)
[2019-07-01] MEDS ORDERED: ONDA4TAB12 PO (16:12)
[2019-07-01 16:45] VITALS: BP 147/82
== END 2019-07-01 16:52 ==
LOC: ER 12:47
DX: N39.0 Urinary tract infection, site not specified (principal); R31.9 Hematuria, unspecified; R10.31 Right lower quadrant pain; R11.0 Nausea; F41.9 Anxiety disorder, unspecified; E11.9 Type 2 diabetes mellitus without complications; I10 Essential (primary) hypertension; Z98.890 Other specified postprocedural states
CPT/HCPCS: 36415; 74176; 80053; 81001; 85025; 87086; 87491; 87591; 96374; 96375; 99284; J0696; J2405; J3010; J7030

== ENCOUNTER 2019-10-12 06:50 | Emergency (ER) | payer BC ==
[~2019-10-12] VITALS: Ht 190.5 cm; Wt 144.5 kg
[~2019-10-12 06:50] MED LIST changes: +CEPH-264 PO; +ONDA4TAB12 PO
--- NOTE | 2019-10-12 07:45 | PHYS DOC ---
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 Patient feels like he could not breathe when he laid out flat. Patient feel that he had an anxiety attack, he said it is his anxiety, he normally come to the ER and they gave him a shot of some anxiety medication and felt much better. Patient denies any cough or fever. Patient has history of hypertension and diabetes. Patient had not taken his medication this morning. Patient had no history of coronary disease, no recent travel or operation. Patient denies any history of blood clot disorder. Patient denies any suicidal ideation. Review of Systems: Review of Systems: Constitutional: Denies fever or chills. [] Eyes: Denies change in visual acuity. [] HENT: Denies nasal congestion or sore throat. [] Respiratory: Denies cough, positive for shortness of breath. [] Cardiovascular: Positive for chest pain, no edema. [] GI: Denies abdominal pain, nausea, vomiting, bloody stools or diarrhea. [] : Denies dysuria. [] Musculoskeletal: Denies back pain or joint pain. [] Integument: Denies rash. [] Neurologic: Denies headache, focal weakness or sensory changes. [] Endocrine: Denies polyuria or polydipsia. [] Lymphatic: Denies swollen glands. [] Psychiatric: Denies depression, positive for anxiety. Heart Score: HEART Score for Chest Pain: HEART Score for Chest Pain Response (Comments) Value History Slighlty/Non-Suspicious 0 ECG Normal 0 Age >45 - < 65 1 Risk Factors 1 or 2 Risk Factors 1 Troponin < Normal Limit 0 Total 2 Risk Factors: Risk Factors: DM, Current or recent (<one month) smoker, HTN, HLP, family history of CAD, obesity. Risk Scores: Score 0 - 3: 2.5% MACE over next 6 weeks - Discharge Home Score 4 - 6: 20.3% MACE over next 6 weeks - Admit for Clinical Observation Score 7 - 10: 72.7% MACE over next 6 weeks - Early Invasive Strategies Allergies: Allergies: Allergies Coded Allergies Type Severity Reaction Last Updated Verified No Known Drug Allergies 10/02/16 No Physical Exam: PE: Constitutional: Well developed, well nourished, no acute distress, non-toxic appearance. [] HENT: Normocephalic, atraumatic, bilateral external ears normal, oropharynx moist, no oral exudates, nose normal. [] Eyes: PERRLA, EOMI, conjunctiva normal, no discharge. [] Neck: Normal range of motion, no tenderness, supple, no stridor. [] Cardiovascular:Heart rate regular rhythm, no murmur [] Lungs & Thorax: Bilateral breath sounds clear to auscultation [] Abdomen: Bowel sounds normal, soft, no tenderness, no masses, no pulsatile masses. [] Skin: Warm, dry, no erythema, no rash. [] Back: No tenderness, no CVA tenderness. [] Extremities: No tenderness, no cyanosis, no clubbing, ROM intact, no edema. [] Neurologic: Alert and oriented X 3, normal motor function, normal sensory function, no focal deficits noted. [] Psychologic: Affect normal, judgement normal, mood normal. [] Current Patient Data: Labs: Laboratory Tests Test 10/12/19 07:30 10/12/19 08:01 Urine Collection Type Unknown Urine Color Yellow Urine Clarity Clear Urine pH 5.5 Urine Specific [place] 1.025 Urine Protein Negative mg/dL Urine Glucose (UA) 100 mg/dL Urine Ketones (Stick) Negative mg/dL Urine Blood Negative Urine Nitrite Negative Urine Bilirubin Negative Urine Urobilinogen Dipstick 0.2 mg/dL Urine Leukocyte Esterase Negative Urine RBC 0 /HPF Urine WBC 0 /HPF Urine Squamous Epithelial Cells Many /LPF Urine Bacteria 0 /HPF Urine Mucus Marked /LPF Urine Opiates Screen Neg Urine Methadone Screen Neg Urine Barbiturates Neg Urine Phencyclidine Screen Neg Urine Amphetamine/Methamphetamine Neg Urine Benzodiazepines Screen Neg Urine Cocaine Screen Neg Urine Cannabinoids Screen Neg Urine Ethyl Alcohol Neg White Blood Count 6.5 x10^3/uL Red Blood Count 5.47 x10^6/uL Hemoglobin 14.9 g/dL Hematocrit 44.8 % Mean Corpuscular Volume 82 fL Mean Corpuscular Hemoglobin 27 pg Mean Corpuscular Hemoglobin Concent 33 g/dL Red Cell Distribution Width 15.1 % Platelet Count 233 x10^3/uL Neutrophils (%) (Auto) 54 % Lymphocytes (%) (Auto) 32 % Monocytes (%) (Auto) 9 % Eosinophils (%) (Auto) 4 % Basophils (%) (Auto) 1 % Neutrophils # (Auto) 3.5 x10^3/uL Lymphocytes # (Auto) 2.1 x10^3/uL Monocytes # (Auto) 0.6 x10^3/uL Eosinophils # (Auto) 0.3 x10^3/uL Basophils # (Auto) 0.1 x10^3/uL Prothrombin Time 12.2 SEC Prothromb Time International Ratio 0.9 Sodium Level 134 mmol/L Potassium Level 4.6 mmol/L Chloride Level 99 mmol/L Carbon Dioxide Level 29 mmol/L Anion Gap 6 Blood Urea Nitrogen 12 mg/dL Creatinine 1.0 mg/dL Estimated GFR (Cockcroft-Gault) 95.7 BUN/Creatinine Ratio 12 Glucose Level 229 mg/dL Calcium Level 9.0 mg/dL Magnesium Level 1.8 mg/dL Total Bilirubin 0.4 mg/dL Aspartate Amino Transf (AST/SGOT) 32 U/L Alanine Aminotransferase (ALT/SGPT) 56 U/L Alkaline Phosphatase 61 U/L Troponin I Quantitative < 0.017 ng/mL [id number] Natriuretic Peptide 5 pg/mL Total Protein 7.8 g/dL Albumin 3.7 g/dL Albumin/Globulin Ratio 0.9 Lipase 97 U/L Current Medications Medications (Trade) Dose Ordered Sig/Sergio Route PRN Reason Start Time Stop Time Status Last Admin Dose Admin Lorazepam (Ativan Inj) 1 mg 1X ONCE IVP 10/12/19 09:00 10/12/19 09:01 DC 10/12/19 09:16 EKG: EKG: EKG was done at 749, read by this physician, heart rate of 74 bpm, normal sinus rhythm, no ST segment elevation. [] Radiology/Procedures: Radiology/Procedures: [][facility] [address] [place] [address] IMAGING REPORT Signed PATIENT: GINGER RUGGIERO ACCOUNT: [id number] : 1970 LOCATION: ER AGE: 49 SEX: M EXAM STATUS: REG ER ORD. PHYSICIAN: ROBBY LAZO DO REASON: chest pain PROCEDURE: PORTABLE CHEST 1V EXAM: CHEST 1 VIEW History: Chest pain COMPARISON: 10/03/2018 TECHNIQUE: Single portable radiograph of the chest FINDINGS: The cardiac silhouette is unremarkable. The lungs are clear bilaterally. The costophrenic sulci are clear and well demarcated. IMPRESSION: No radiographic evidence of an acute cardiopulmonary process. Electronically signed by: Bryant Mazariegos MD (10/12/2019 8:09 AM) [id number] DICTATED and SIGNED BY: BRYANT MAZARIEGOS MD DATE: 10/12/19 0809 Course & Med Decision Making: Course & Med Decision Making Pertinent Labs and Imaging studies reviewed. (See chart for details) CHEST PAIN, NONSPECIFIC: The patient presents today with chest pain lasting [duration]. The quality of the pain is very atypical for acute coronary syndrome. Additionally, the patient has minimal risk factors for coronary artery disease with a suggestion of good exercise tolerance and does not have ongoing chest pain. Given the duration of the chest pain with cardiac enzymes returning within normal limits, I do feel that from a risk stratification standpoint, the patient can be safely discharged home for outpatient evaluation by the primary care physician. The patient, however, fully understands that the evaluation today in no way rules out coronary artery disease as a possibility and that close followup is necessary as a component of a complete evaluation. The patient also understands that should the pain change, or become more frequent, more i ntense, or should the patient develop new symptoms, the patient is instructed to return immediately to the emergency room for reevaluation. However, at this time, given the lack of significant risk factors in conjunction with an atypical history in conjunction with normal enzymes despite the duration of pain and an unchanged or normal EKG, I do feel that the information available to us at this time suggests that this is unlikely to represent acute plaque rupture and that the risk of morbidity or mortality is low. Also considered today was the possibility of a pneumothorax, pneumonia, pulmonary embolus, mediastinitis, and thoracic aortic dissection. However, after careful consideration of the patient's clinical history and presentation and findings, there is no evidence to suggest any of these as a likely diagnosis and therefore feel that the continued pursuit of these etiologies is not warranted at this time. Patient was given 1 mg Ativan IV, he felt much better. His lab work and EKG all come back normal. Patient will need to follow-up with his family doctor for further evaluation and treatment. Memo Disclaimer: Memo Disclaimer: This electronic medical record was generated, in whole or in part, using a voice recognition dictation system. Departure Departure Impression: Primary Impression: Chest pain Additional Impression: Anxiety Disposition: HOME, SELF-CARE Condition: IMPROVED Referrals: NO PCP (PCP) please follow up with your family doctor next week for reevaluation. VINH PENNY MD please call this washer engineer for outpatient follow up next week. Patient Instructions: Anxiety and Panic Attacks, Chest Pain (Nonspecific) Scripts Hydroxyzine Hcl (HYDROXYZINE HCL) 25 Mg Tablet 25 MG PO QID PRN for ANXIETY, #30 TAB Prov: ROBBY LAZO DO 10/12/19 ROBBY LAZO DO October 12, 2019 07:45
[2019-10-12 08:08] LABS: BILIRUBIN,URINE NEGATIVE (NEG); CLARITY,URINE CLEAR; COLOR,URINE YELLOW; NITRITE,URINE NEGATIVE (NEG); PH,URINE 5.5 (<5.0-8.0); PROTEIN,URINE NEGATIVE (NEG-TRACE); UROBILINOGEN,URINE 0.2 mg/dL (0.2 mg/dL)
--- NOTE | 2019-10-12 08:12 | RAD ---
EXAM: CHEST 1 VIEW History: Chest pain COMPARISON: 10/03/2018 TECHNIQUE: Single portable radiograph of the chest FINDINGS: The cardiac silhouette is unremarkable. The lungs are clear bilaterally. The costophrenic sulci are clear and well demarcated. IMPRESSION: No radiographic evidence of an acute cardiopulmonary process. Electronically signed by: Bryant Mazariegos MD (10/12/2019 8:09 AM) [id number]
[2019-10-12 08:14] LABS: BARBITURATES NEG (NEG); BENZODIAZEPINES NEG (NEG); CANNABINOIDS NEG (NEG); COCAINE NEG (NEG); METHADONE NEG (NEG); OPIATES NEG (NEG); PHENCYCLIDINE NEG (NEG)
[2019-10-12 08:15] LABS: AMPHETAMINE/METHAMPHETAMINE NEG (NEG)
[2019-10-12 08:20] LABS: BASO # 0.1 x10^3/uL (0.0-0.2); BASO % 1 % (0-3); EOS # 0.3 x10^3/uL (0.0-0.7); EOS % 4 % (0-3); HEMATOCRIT 44.8 % (39.0-53.0); HEMOGLOBIN 14.9 g/dL (13.0-17.5); LYMPH # 2.1 x10^3/uL (1.0-4.8); LYMPH % 32 % (24-48); MEAN CORPUSCULAR HEMOGLOBIN 27 pg (25-35); MEAN CORPUSCULAR HGB CONC 33 g/dL (31-37); MEAN CORPUSCULAR VOLUME 82 fL (79-100); MONO # 0.6 x10^3/uL (0.0-1.1); MONO % 9 % (0-9); NEUT # 3.5 x10^3/uL (1.8-7.7); NEUT % 54 % (31-73); PLATELET COUNT 233 x10^3/uL (140-400); RED BLOOD COUNT 5.47 x10^6/uL (4.30-5.70); RED CELL DISTRIBUTION WIDTH 15.1 % (11.5-14.5); WHITE BLOOD COUNT 6.5 x10^3/uL (4.0-11.0)
[2019-10-12 08:22] LABS: GFR 95.7
[2019-10-12 08:23] LABS: POTASSIUM 4.6 mmol/L (3.5-5.1)
[2019-10-12 08:24] LABS: BACTERIA,URINE 0 /HPF (0-FEW); RBC,URINE 0 /HPF (0-2); SQUAMOUS EPITHELIAL CELL,UR MANY /LPF; WBC,URINE 0 /HPF (0-4)
[2019-10-12 08:28] LABS: ALBUMIN 3.7 g/dL (3.4-5.0); ALBUMIN/GLOBULIN RATIO 0.9 (1.0-1.7); MAGNESIUM 1.8 mg/dL (1.8-2.4); TOTAL BILIRUBIN 0.4 mg/dL (0.2-1.0); TOTAL PROTEIN 7.8 g/dL (6.4-8.2)
[2019-10-12 08:43] LABS: PROTHROMBIN TIME PATIENT 12.2 SEC (11.7-14.0)
--- NOTE | 2019-10-12 09:04 | EKG ---
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
[2019-10-12 09:30] VITALS: BP 131/89
[2019-10-12] MEDS ORDERED: HYDR25TA PO (09:53)
== END 2019-10-12 10:10 | disposition home or self-care (01) ==
LOC: ER 06:50
DX: R07.2 Precordial pain (principal); F41.9 Anxiety disorder, unspecified; E10.9 Type 1 diabetes mellitus without complications; I10 Essential (primary) hypertension; M10.9 Gout, unspecified
CPT/HCPCS: 36415; 71045; 80053; 80307; 81001; 83690; 83735; 83880; 84484; 85025; 85610; 93005; 96374; 99285; J2060